=== PATIENT | female | born 1965 | race Caucasian/White ===

== ENCOUNTER 2019-11-03 17:24 | Inpatient (IN) | payer SELFPAY ==
[~2019-11-03] VITALS: Ht 167.6 cm; Wt 93.3 kg
--- NOTE | 2019-11-03 18:24 | PHYS DOC ---
Past Medical History Past Medical History: Hypertension Additional Past Medical Histor: Pt has not taken BP medication in a few days Past Surgical History: Hysterectomy Alcohol Use: None Drug Use: None General Adult EDM: Chief Complaint: ABDOMINAL PAIN HPI: HPI: Patient is a 54 year old female who presents with a 5-day history of worsening abdominal pain. Patient describes moderate in severity worse with palpation diffuse abdominal pain is worse in epigastric and radiates to the back. Patient has had some nausea but no vomiting. Patient has had bright red blood in her stool for last 3 years that continues. Patient seen by her doctor and sent in for evaluation. Patient has felt like she has had the sweats the last 3 nights but has not documented a temperature. Patient denies any chills or cough or urinary symptoms. Review of Systems: Review of Systems: Constitutional: Denies fever or chills. [] Eyes: Denies change in visual acuity. [] HENT: Denies nasal congestion or sore throat. [] Respiratory: Denies cough or shortness of breath. [] Cardiovascular: Denies chest pain or edema. [] GI: Complains abdominal pain with nausea and blood in her stools : Denies dysuria. [] Musculoskeletal: Planes of low back pain Integument: Denies rash. [] Neurologic: Denies headache, focal weakness or sensory changes. [] Endocrine: Denies polyuria or polydipsia. [] Lymphatic: Denies swollen glands. [] Psychiatric: Denies depression or anxiety. [] Heart Score: Risk Factors: Risk Factors: DM, Current or recent (<one month) smoker, HTN, HLP, family history of CAD, obesity. Risk Scores: Score 0 - 3: 2.5% MACE over next 6 weeks - Discharge Home Score 4 - 6: 20.3% MACE over next 6 weeks - Admit for Clinical Observation Score 7 - 10: 72.7% MACE over next 6 weeks - Early Invasive Strategies Allergies: Allergies: Allergies Coded Allergies Type Severity Reaction Last Updated Verified No Known Drug Allergies 06/03/17 No Physical Exam: PE: Constitutional: Well developed, well nourished, no acute distress, non-toxic appearance. [] HENT: Normocephalic, atraumatic, bilateral external ears normal, no trismus nose normal. [] Eyes: PERRLA, EOMI, conjunctiva normal, no discharge. [] Neck: Normal range of motion, no tenderness, supple, no stridor. [] Cardiovascular:Heart rate regular rhythm, peripheral pulses intact, cap refill brisk Lungs & Thorax: Bilateral breath sounds clear, no respiratory distress Abdomen:, soft, diffuse tenderness with worsened epigastric with no guarding or rebound, no masses, no pulsatile masses. [] Rectal exam: Airline Radio Operator present no external abnormalities Skin: Warm, dry, no erythema, no rash. [] Back: No tenderness, no CVA tenderness. [] Extremities: No tenderness, no cyanosis, no clubbing, ROM intact, no edema. [] Neurologic: Alert and oriented X 3, normal motor function, normal sensory function, no focal deficits noted. [] Psychologic: Affect normal, judgement normal, mood normal. [] Current Patient Data: Labs: Laboratory Tests Test 11/03/19 18:14 11/03/19 19:45 Urine Collection Type Void Urine Color Nicolette Urine Clarity Cloudy Urine pH 6.0 Urine Specific [place] >=1.030 Urine Protein 30 mg/dL Urine Glucose (UA) Negative mg/dL Urine Ketones (Stick) Trace mg/dL Urine Blood Negative Urine Nitrite Negative Urine Bilirubin Moderate Urine Urobilinogen Dipstick 2.0 mg/dL Urine Leukocyte Esterase Small Urine RBC 0 /HPF Urine WBC Occ /HPF Urine Squamous Epithelial Cells Mod /LPF Urine Bacteria Few /HPF Urine Hyaline Casts Occasional /HPF Urine Mucus Mod /LPF White Blood Count 7.8 x10^3/uL Red Blood Count 4.67 x10^6/uL Hemoglobin 12.4 g/dL Hematocrit 38.6 % Mean Corpuscular Volume 83 fL Mean Corpuscular Hemoglobin 27 pg Mean Corpuscular Hemoglobin Concent 32 g/dL Red Cell Distribution Width 16.2 % Platelet Count 327 x10^3/uL Neutrophils (%) (Auto) 60 % Lymphocytes (%) (Auto) 30 % Monocytes (%) (Auto) 9 % Eosinophils (%) (Auto) 1 % Basophils (%) (Auto) 1 % Neutrophils # (Auto) 4.7 x10^3/uL Lymphocytes # (Auto) 2.3 x10^3/uL Monocytes # (Auto) 0.7 x10^3/uL Eosinophils # (Auto) 0.1 x10^3/uL Basophils # (Auto) 0.0 x10^3/uL Sodium Level 135 mmol/L Potassium Level 3.5 mmol/L Chloride Level 97 mmol/L Carbon Dioxide Level 29 mmol/L Anion Gap 9 Blood Urea Nitrogen 12 mg/dL Creatinine 1.0 mg/dL Estimated GFR (Cockcroft-Gault) 58.0 BUN/Creatinine Ratio 12 Glucose Level 124 mg/dL Calcium Level 9.1 mg/dL Total Bilirubin 0.3 mg/dL Aspartate Amino Transf (AST/SGOT) 17 U/L Alanine Aminotransferase (ALT/SGPT) 21 U/L Alkaline Phosphatase 147 U/L Total Protein 6.4 g/dL Albumin 2.5 g/dL Albumin/Globulin Ratio 0.6 Lipase 75 U/L Current Medications Medications (Trade) Dose Ordered Sig/Oracio Route PRN Reason Start Time Stop Time Status Last Admin Dose Admin Morphine Sulfate (Morphine Sulfate) 4 mg PRN Q15MIN PRN IV/SQ PAIN GREATER THAN 3/10 11/03/19 18:30 11/04/19 18:29 Sodium Chloride 1,000 ml @ 1,000 mls/hr Q1H IV 11/03/19 18:29 11/03/19 19:28 DC 11/03/19 20:00 Ondansetron HCl (Zofran) 4 mg 1X ONCE IVP 11/03/19 18:30 11/03/19 18:31 DC Iohexol (Omnipaque 300 Mg/ml) 60 ml 1X ONCE IV 11/03/19 21:00 11/03/19 21:01 DC 11/03/19 21:12 Info (CONTRAST GIVEN -- Rx MONITORING) 1 each PRN DAILY PRN MC SEE COMMENTS 11/03/19 20:45 11/05/19 20:44 Piperacillin Sod/ Tazobactam Sod 3.375 gm/Sodium Chloride 50 ml @ 100 mls/hr 1X ONCE IV 11/03/19 23:00 11/03/19 23:29 Vital Signs: Vital Signs Date Time Temp Pulse Resp B/P (MAP) Pulse Ox O2 Delivery O2 Flow Rate FiO2 11/03/19 18:04 98.1 112 20 114/74 (87) 95 Room Air 98.1 EKG: EKG: [] Radiology/Procedures: Radiology/Procedures: [][facility] [address] [place], [place] [id number] IMAGING REPORT Signed PATIENT: ALEXX FERNANDO ACCOUNT: [id number] : 1965 LOCATION: ER AGE: 54 SEX: F EXAM STATUS: REG ER ORD. PHYSICIAN: EMMETT WITT MD REASON: abd pain PROCEDURE: CT ABD PELV W/ IV CONTRST ONLY CT ABD PELV W/ IV CONTRST ONLY History: Reason: abd pain / Spl. Instructions: [id number] 60ML / History: Technique: After the administration of intravenous contrast, CT imaging was performed of the abdomen and pelvis. Multiplanar images are reviewed. Exposure: One or more of the following individualized dose reduction techniques were utilized for this examination: 1. Automated exposure control 2. Adjustment of the mA and/or kV according to patient size 3. Use of iterative reconstruction technique. Comparison: None Findings: Lower chest: Right lower lobe linear atelectasis. Abdomen and pelvis: The liver, spleen, adrenal glands, and pancreas are unremarkable. Prior cholecystectomy. No biliary ductal dilatation. Unremarkable appearance the kidneys. No hydronephrosis. Decompressed urinary bladder. Rectal wall thickening with adjacent multiloculated peripherally enhancing fluid collection measures 3.6 transverse by 2.5 cm anterior posterior (series 2 image 82). There is severe adjacent inflammatory changes. Mass effect on the rectum with displacement of the right. Normal appendix. No evidence of bowel obstruction. Numerous mildly prominent or pelvic perirectal lymph nodes. Small pelvic ascites. Atheromatous plaque throughout the nonaneurysmal abdominal aorta and branch vessels. Prior hysterectomy. Bones: No pathologic osseous lesions. Impression: 1. Rectal wall thickening with perirectal abscess and severe inflammatory changes. Recommend follow-up after treatment to exclude underlying lesion. 2. Mild pelvic lymphadenopathy. Recommend attention on follow-up. Electronically signed by: Erlin Cruz DO (11/03/2019 10:32 PM) [facility] DICTATED and SIGNED BY: ERLIN CRUZ DO DATE: 11/03/192231 Impression: [facility] [address] [place] [address] IMAGING REPORT Signed PATIENT: ALEXX FERNANDO ACCOUNT: [id number] : 1965 LOCATION: ER AGE: 54 SEX: F EXAM STATUS: REG ER ORD. PHYSICIAN: EMMETT WITT MD REASON: abd pain PROCEDURE: CT ABD PELV W/ IV CONTRST ONLY CT ABD PELV W/ IV CONTRST ONLY History: Reason: abd pain / Spl. Instructions: [id number] 60ML / History: Technique: After the administration of intravenous contrast, CT imaging was performed of the abdomen and pelvis. Multiplanar images are reviewed. Exposure: One or more of the following individualized dose reduction techniques were utilized for this examination: 1. Automated exposure control 2. Adjustment of the mA and/or kV according to patient size 3. Use of iterative reconstruction technique. Comparison: None Findings: Lower chest: Right lower lobe linear atelectasis. Abdomen and pelvis: The liver, spleen, adrenal glands, and pancreas are unremarkable. Prior cholecystectomy. No biliary ductal dilatation. Unremarkable appearance the kidneys. No hydronephrosis. Decompressed urinary bladder. Rectal wall thickening with adjacent multiloculated peripherally enhancing fluid collection measures 3.6 transverse by 2.5 cm anterior posterior (series 2 image 82). There is severe adjacent inflammatory changes. Mass effect on the rectum with displacement of the right. Normal appendix. No evidence of bowel obstruction. Numerous mildly prominent or pelvic perirectal lymph nodes. Small pelvic ascites. Atheromatous plaque throughout the nonaneurysmal abdominal aorta and branch vessels. Prior hysterectomy. Bones: No pathologic osseous lesions. Impression: 1. Rectal wall thickening with perirectal abscess and severe inflammatory changes. Recommend follow-up after treatment to exclude underlying lesion. 2. Mild pelvic lymphadenopathy. Recommend attention on follow-up. Electronically signed by: Erlin Cruz DO (11/03/2019 10:32 PM) [facility] DICTATED and SIGNED BY: ERLIN CRUZ DO DATE: 11/03/192231 Course & Med Decision Making: Course & Med Decision Making Pertinent Labs and Imaging studies reviewed. (See chart for details) [] 54-year-old female presents with abdominal pain. Patient also has had 5 years of rectal bleeding. CT shows a perirectal abscess and possible mass. Patient was given antibiotics will be admitted. Dr. Brownlee will be consulted from general surgery. Dr. Welch to admit. Khushi Disclaimer: Khushi Disclaimer: This electronic medical record was generated, in whole or in part, using a voice recognition dictation system. Departure Departure Impression: Primary Impression: Perirectal abscess Additional Impression: Abdominal pain Disposition: 09 ADMITTED INPATIENT Admitting Physician: FELI GOTTI) Condition: STABLE Referrals: LEWIS WIGGINS PA-C (PCP) Justicifation of Admission Dx: Justifications for Admission: Justification of Admission Dx: Yes (PERIRECTAL ABSCESS) EMMETT WITT MD Nov 03, 2019 18:24
[2019-11-03] MEDS ORDERED: IV NORMAL SALINE 1000ML BAG 1,000 ML IV SCH (18:29)
[2019-11-03] MEDS ORDERED: MORPHINE SULFATE 4 MG/ML VIAL. IV/SQ PRN (18:30)
[2019-11-03] MEDS ORDERED: ONDANSETRON PF 4 MG/2 ML VIAL. IVP ONE (18:30)
[2019-11-03 18:41] LABS: BILIRUBIN,URINE MODERATE (NEG); CLARITY,URINE CLOUDY; COLOR,URINE AMBER; NITRITE,URINE NEGATIVE (NEG); PROTEIN,URINE 30 mg/dL (NEG-TRACE)
[2019-11-03 18:47] LABS: BACTERIA,URINE FEW /HPF (0-FEW); RBC,URINE 0 /HPF (0-2); SQUAMOUS EPITHELIAL CELL,UR MOD /LPF; WBC,URINE OCC /HPF (0-4)
[2019-11-03 18:48] LABS: HYALINE CASTS, URINE OCCASIONAL /HPF
[2019-11-03 20:02] LABS: BASO % 1 % (0-3); EOS # 0.1 x10^3/uL (0.0-0.7); EOS % 1 % (0-3); HEMATOCRIT 38.6 % (36.0-47.0); HEMOGLOBIN 12.4 g/dL (12.0-15.5); LYMPH # 2.3 x10^3/uL (1.0-4.8); LYMPH % 30 % (24-48); MEAN CORPUSCULAR HEMOGLOBIN 27 pg (25-35); MEAN CORPUSCULAR HGB CONC 32 g/dL (31-37); MEAN CORPUSCULAR VOLUME 83 fL (79-100); MONO # 0.7 x10^3/uL (0.0-1.1); MONO % 9 % (0-9); NEUT # 4.7 x10^3/uL (1.8-7.7); NEUT % 60 % (31-73); PLATELET COUNT 327 x10^3/uL (140-400); RED BLOOD COUNT 4.67 x10^6/uL (3.50-5.40); RED CELL DISTRIBUTION WIDTH 16.2 % (11.5-14.5); WHITE BLOOD COUNT 7.8 x10^3/uL (4.0-11.0)
[2019-11-03 20:03] LABS: CALCIUM 9.1 mg/dL (8.5-10.1); POTASSIUM 3.5 mmol/L (3.5-5.1)
[2019-11-03 20:10] LABS: ALBUMIN 2.5 g/dL (3.4-5.0); ALBUMIN/GLOBULIN RATIO 0.6 (1.0-1.7); TOTAL BILIRUBIN 0.3 mg/dL (0.2-1.0); TOTAL PROTEIN 6.4 g/dL (6.4-8.2)
[2019-11-03] MEDS ORDERED: CONTRAST GIVEN. MC PRN (20:45)
[2019-11-03] MEDS ORDERED: IOHEXOL 300 MG/ML 100ML VIAL. IV ONE (21:00)
--- NOTE | 2019-11-03 22:35 | RAD ---
CT ABD PELV W/ IV CONTRST ONLY History: Reason: abd pain / Spl. Instructions: [id number] 60ML / History: Technique: After the administration of intravenous contrast, CT imaging was performed of the abdomen and pelvis. Multiplanar images are reviewed. Exposure: One or more of the following individualized dose reduction techniques were utilized for this examination: 1. Automated exposure control 2. Adjustment of the mA and/or kV according to patient size 3. Use of iterative reconstruction technique. Comparison: None Findings: Lower chest: Right lower lobe linear atelectasis. Abdomen and pelvis: The liver, spleen, adrenal glands, and pancreas are unremarkable. Prior cholecystectomy. No biliary ductal dilatation. Unremarkable appearance the kidneys. No hydronephrosis. Decompressed urinary bladder. Rectal wall thickening with adjacent multiloculated peripherally enhancing fluid collection measures 3.6 transverse by 2.5 cm anterior posterior (series 2 image 82). There is severe adjacent inflammatory changes. Mass effect on the rectum with displacement of the right. Normal appendix. No evidence of bowel obstruction. Numerous mildly prominent or pelvic perirectal lymph nodes. Small pelvic ascites. Atheromatous plaque throughout the nonaneurysmal abdominal aorta and branch vessels. Prior hysterectomy. Bones: No pathologic osseous lesions. Impression: 1. Rectal wall thickening with perirectal abscess and severe inflammatory changes. Recommend follow-up after treatment to exclude underlying lesion. 2. Mild pelvic lymphadenopathy. Recommend attention on follow-up. Electronically signed by: Erlin Cruz DO (11/03/2019 10:32 PM) [facility]
[2019-11-03] MEDS ORDERED: PIPERACILLIN/TAZOBACTAM 3.375 GM in IV NORMAL SALINE 50ML 50 ML IV ONE (23:00)
[2019-11-04] MEDS ORDERED: DEXTROSE 50% 25 GM / 50ML DISP.SYRIN. IV ONE (01:45)
[2019-11-04] MEDS ORDERED: metoprolol PO (05:35)
[2019-11-04] MEDS ORDERED: losartan-hctz PO (05:35)
[2019-11-04 07:00] VITALS: BP 129/76
--- NOTE | 2019-11-04 09:13 | HP ---
ADMIT DATE: 11/04/2019 CHIEF COMPLAINT: Abdominal pain. HISTORY OF PRESENT ILLNESS: The patient is a pleasant middle-aged female who has had 4 days of abdominal pain. She has associated bloating. It is rated at 9/10. It is worse with food, better with no food. She tried [id number] meds that did not work, she describes as irritating. I discussed the case with ER physician. We did a CAT scan, it does show a perirectal abscess and a possible mass, although I suspect this is all abscess. I am going to admit the patient and consult GI, Infectious Disease and Interventional Radiology to drain the abscess. PAST MEDICAL HISTORY: Hypertension, hysterectomy. ALLERGIES: None. FAMILY HISTORY: Diabetes. SOCIAL HISTORY: She does not drink, smoke or take drugs. She used to work in a hotel business, but currently unemployed. MEDICATIONS: Reviewed, please refer to the MRAD. REVIEW OF SYSTEMS: GENERAL: No history of weight change, weakness or fevers. SKIN: No bruising, hair changes or rashes. EYES: No blurred, double or loss of vision. NOSE AND THROAT: No history of nosebleeds, hoarseness or sore throat. HEART: No history of palpitations, chest pain or shortness of breath on exertion. LUNGS: Denies cough, hemoptysis, wheezing or shortness of breath. GASTROINTESTINAL: She complains of abdominal pain and bloating. GENITOURINARY: No history of frequency, urgency, hesitancy or nocturia. NEUROLOGIC: Denies history of numbness, tingling, tremor or weakness. PSYCHIATRIC: No history of panic, anxiety or depression. ENDOCRINE: No history of heat or cold intolerance, polyuria or polydipsia. EXTREMITIES: Denies muscle weakness, joint pain, pain on walking or stiffness. PHYSICAL EXAMINATION: VITALS: Within normal limits and are stable. GENERAL: No apparent distress. Alert and oriented. HEENT: Normal cephalic atraumatic, external auditory canals are patent. EYES: Extraocular muscles are intact, pupils are equally round and reactive to light and accommodation. MUSCULOSKELETAL: Well developed, well nourished, good range of motion. ENDOCRINE: No thyromegaly was palpated. LYMPHATICS: No cervical chain or axillary nodes were noted. HEMATOPOIETIC: No bruising. NECK: Supple, no JVD, no thyromegaly was noted. LUNGS: Clear to auscultation in all lung prince without rhonchi or wheezing. HEART: RRR, S1, S2 present. Peripheral pulses intact, no obvious murmurs were noted. ABDOMEN: Her abdomen is slightly tender with decreased bowel sounds. EXTREMITIES: Without any cyanosis, clubbing, or edema. Pedal pulses intact, Homans sign is negative. NEUROLOGIC: Normal speech, normal tone. A & O x3, moves all extremities, no obvious focal deficits. PSYCHIATRIC: Normal affect, normal mood. Stable. SKIN: No ulcerations or rashes, good skin turgor, no jaundice. VASCULAR: Good capillary refill, neurovascular bundle appears to be intact. LABORATORY DATA: White count 7.8. Electrolytes: Sodium 135, glucose 124. The rest are normal. Urinalysis: Small amount of leukocyte esterase. IMAGING: CT of the abdomen shows a perirectal abscess. ASSESSMENT AND PLAN: Perirectal abscess. The patient has been admitted. We are given IV antibiotics. Consult GI, Interventional Radiology and Infectious Disease. Home meds, DVT prophylaxis. Full code. JN ELDER DO DR: DB/sejal JOB#: [id number] / [id number]
--- NOTE | 2019-11-04 09:57 | NUR ---
SW following. Discussed with RN, pt from home, gets around fine, room air, cardiac diet, COVID-[address] Bourgeois, Dr. Salvador and Dr. Stoner. Perirectal abscess and possible mass. Med Assist following for self pay status. SW will continue to follow.
[2019-11-04] MEDS: NICOTINE 21MG PATCH. TD PRN (10:29)
--- NOTE | 2019-11-04 10:39 | PDOC ---
Infectious Disease Note Vital Sign Vital Signs Vital Signs Date Time Temp Pulse Resp B/P (MAP) Pulse Ox O2 Delivery O2 Flow Rate FiO2 11/04/19 07:00 97.8 107 18 129/76 (93) 94 Room Air 97.8 Labs Lab Laboratory Tests Test 11/03/19 18:14 11/03/19 19:45 11/04/19 00:51 11/04/19 02:49 Urine Collection Type Void Urine Color Nicolette Urine Clarity Cloudy Urine pH 6.0 (<5.0-8.0) Urine Specific [place] >=1.030 (1.000-1.030) Urine Protein 30 mg/dL (NEG-TRACE) Urine Glucose (UA) Negative mg/dL (NEG) Urine Ketones (Stick) Trace mg/dL (NEG) Urine Blood Negative (NEG) Urine Nitrite Negative (NEG) Urine Bilirubin Moderate (NEG) Urine Urobilinogen Dipstick 2.0 mg/dL (0.2 mg/dL) Urine Leukocyte Esterase Small (NEG) Urine RBC 0 /HPF (0-2) Urine WBC Occ /HPF (0-4) Urine Squamous Epithelial Cells Mod /LPF Urine Bacteria Few /HPF (0-FEW) Urine Hyaline Casts Occasional /HPF Urine Mucus Mod /LPF White Blood Count 7.8 x10^3/uL (4.0-11.0) Red Blood Count 4.67 x10^6/uL (3.50-5.40) Hemoglobin 12.4 g/dL (12.0-15.5) Hematocrit 38.6 % (36.0-47.0) Mean Corpuscular Volume 83 fL (79-100) Mean Corpuscular Hemoglobin 27 pg (25-35) Mean Corpuscular Hemoglobin Concent 32 g/dL (31-37) Red Cell Distribution Width 16.2 % (11.5-14.5) Platelet Count 327 x10^3/uL (140-400) Neutrophils (%) (Auto) 60 % (31-73) Lymphocytes (%) (Auto) 30 % (24-48) Monocytes (%) (Auto) 9 % (0-9) Eosinophils (%) (Auto) 1 % (0-3) Basophils (%) (Auto) 1 % (0-3) Neutrophils # (Auto) 4.7 x10^3/uL (1.8-7.7) Lymphocytes # (Auto) 2.3 x10^3/uL (1.0-4.8) Monocytes # (Auto) 0.7 x10^3/uL (0.0-1.1) Eosinophils # (Auto) 0.1 x10^3/uL (0.0-0.7) Basophils # (Auto) 0.0 x10^3/uL (0.0-0.2) Sodium Level 135 mmol/L (136-145) Potassium Level 3.5 mmol/L (3.5-5.1) Chloride Level 97 mmol/L (98-107) Carbon Dioxide Level 29 mmol/L (21-32) Anion Gap 9 (6-14) Blood Urea Nitrogen 12 mg/dL (7-20) Creatinine 1.0 mg/dL (0.6-1.0) Estimated GFR (Cockcroft-Gault) 58.0 BUN/Creatinine Ratio 12 (6-20) Glucose Level 124 mg/dL (70-99) Calcium Level 9.1 mg/dL (8.5-10.1) Total Bilirubin 0.3 mg/dL (0.2-1.0) Aspartate Amino Transf (AST/SGOT) 17 U/L (15-37) Alanine Aminotransferase (ALT/SGPT) 21 U/L (14-59) Alkaline Phosphatase 147 U/L (46-116) Total Protein 6.4 g/dL (6.4-8.2) Albumin 2.5 g/dL (3.4-5.0) Albumin/Globulin Ratio 0.6 (1.0-1.7) Lipase 75 U/L (73-393) Lactic Acid Level 1.2 mmol/L (0.4-2.0) SARS-CoV-2 Antigen (Rapid) Negative (NEGATIVE) Objective Assessment pt seen, consult dictated Plan Plan of Care / KAYLA MORALES MD Nov 04, 2019 10:39
[2019-11-04 10:43] VITALS: BP 123/81
--- NOTE | 2019-11-04 12:00 | CONS ---
DATE OF CONSULTATION: 11/04/2019 REQUESTING PHYSICIAN: Dr. Palafox. REASON FOR CONSULTATION: Perirectal abscess. HISTORY OF PRESENT ILLNESS: This is a 54-year-old female who has been intermittent having abdominal pain last 5 days. It gotten worse in the epigastric region, hence she decided to come in. The patient also has intermittent rectal bleed and she was told to have colonoscopy, but she has never done it. The patient denies any nausea or vomiting. Denies any diarrhea. Denies any chest pain. Denies any weight loss. PAST MEDICAL HISTORY: Positive for hypertension and has had hysterectomy. The patient does know that there is something wrong with her rectal area, but she has never gotten to be taken care of. SOCIAL HISTORY: Positive for smoking, no alcohol use or drug use. ALLERGIES: No known drug allergies. CURRENT MEDICATIONS: Reviewed. The patient is on piperacillin/tazobactam. REVIEW OF SYSTEMS: As per HPI, all other systems reviewed are negative. PHYSICAL EXAMINATION: GENERAL: Alert, oriented female, not in distress. VITAL SIGNS: Stable, afebrile. HEENT: NAD. NECK: Supple, no JVP, no lymphadenopathy. LUNGS: Clear. HEART: S1, S2 regular. ABDOMEN: Soft, mild epigastric tenderness, no rebound, guarding. No organomegaly. EXTREMITIES: No edema, cyanosis. SKIN: Unremarkable. RECTAL: Perirectal area examination done with the patient's nurse and there is no redness, induration, open wound or any tenderness felt. NEUROLOGICAL: The patient is alert, awake and appropriate. No focal neurologic deficit. LABORATORY DATA: White count is normal. BUN and creatinine is normal. Urinalysis unremarkable. COVID-[address] showed there is a rectal wall thickening with perirectal abscess and severe inflammatory changes. IMPRESSION: 1. Abdominal pain may have peptic ulcer disease. 2. Rectal bleed, may have been from peptic ulcer disease and/or she does have some changes in the rectal wall that may be causing the bleed. 3. Rectal wall thickening and perirectal abscess with severe inflammation concerning for malignancy. RECOMMENDATIONS: Continue Zosyn for the time being. Infection is probably not that much of a component, but the patient needs EGD and colonoscopy. Thank you very much, Dr. Palafox, for giving me the opportunity to participate in this patient's care. KAYLA MORALES MD DR: TIEN/sejal JOB#: [id number] / [id number]
[2019-11-04 12:04] LABS: PROTHROMBIN TIME PATIENT 13.2 SEC (11.7-14.0)
[2019-11-04] MEDS ORDERED: LIDOCAINE WITH 8.4% SOD BICARB 3 ML DISP.SYRIN. ONE (13:26)
--- NOTE | 2019-11-04 13:40 | PDOC ---
G I PROGRESS NOTE Reason for Follow-up Rectal bleed Subjective Bleeding with and without BMS Physical Exam Lungs clear CV S1 S2 ABD +BS, soft, nontender Review of Relevant I have reviewed the following items mo (where applicable) has been applied. Labs Laboratory Tests Test 11/03/19 18:14 11/03/19 19:45 11/04/19 00:51 11/04/19 02:49 Urine Collection Type Void Urine Color Nicolette Urine Clarity Cloudy Urine pH 6.0 (<5.0-8.0) Urine Specific [place] >=1.030 (1.000-1.030) Urine Protein 30 mg/dL (NEG-TRACE) Urine Glucose (UA) Negative mg/dL (NEG) Urine Ketones (Stick) Trace mg/dL (NEG) Urine Blood Negative (NEG) Urine Nitrite Negative (NEG) Urine Bilirubin Moderate (NEG) Urine Urobilinogen Dipstick 2.0 mg/dL (0.2 mg/dL) Urine Leukocyte Esterase Small (NEG) Urine RBC 0 /HPF (0-2) Urine WBC Occ /HPF (0-4) Urine Squamous Epithelial Cells Mod /LPF Urine Bacteria Few /HPF (0-FEW) Urine Hyaline Casts Occasional /HPF Urine Mucus Mod /LPF White Blood Count 7.8 x10^3/uL (4.0-11.0) Red Blood Count 4.67 x10^6/uL (3.50-5.40) Hemoglobin 12.4 g/dL (12.0-15.5) Hematocrit 38.6 % (36.0-47.0) Mean Corpuscular Volume 83 fL (79-100) Mean Corpuscular Hemoglobin 27 pg (25-35) Mean Corpuscular Hemoglobin Concent 32 g/dL (31-37) Red Cell Distribution Width 16.2 % (11.5-14.5) Platelet Count 327 x10^3/uL (140-400) Neutrophils (%) (Auto) 60 % (31-73) Lymphocytes (%) (Auto) 30 % (24-48) Monocytes (%) (Auto) 9 % (0-9) Eosinophils (%) (Auto) 1 % (0-3) Basophils (%) (Auto) 1 % (0-3) Neutrophils # (Auto) 4.7 x10^3/uL (1.8-7.7) Lymphocytes # (Auto) 2.3 x10^3/uL (1.0-4.8) Monocytes # (Auto) 0.7 x10^3/uL (0.0-1.1) Eosinophils # (Auto) 0.1 x10^3/uL (0.0-0.7) Basophils # (Auto) 0.0 x10^3/uL (0.0-0.2) Sodium Level 135 mmol/L (136-145) Potassium Level 3.5 mmol/L (3.5-5.1) Chloride Level 97 mmol/L (98-107) Carbon Dioxide Level 29 mmol/L (21-32) Anion Gap 9 (6-14) Blood Urea Nitrogen 12 mg/dL (7-20) Creatinine 1.0 mg/dL (0.6-1.0) Estimated GFR (Cockcroft-Gault) 58.0 BUN/Creatinine Ratio 12 (6-20) Glucose Level 124 mg/dL (70-99) Calcium Level 9.1 mg/dL (8.5-10.1) Total Bilirubin 0.3 mg/dL (0.2-1.0) Aspartate Amino Transf (AST/SGOT) 17 U/L (15-37) Alanine Aminotransferase (ALT/SGPT) 21 U/L (14-59) Alkaline Phosphatase 147 U/L (46-116) Total Protein 6.4 g/dL (6.4-8.2) Albumin 2.5 g/dL (3.4-5.0) Albumin/Globulin Ratio 0.6 (1.0-1.7) Lipase 75 U/L (73-393) Lactic Acid Level 1.2 mmol/L (0.4-2.0) SARS-CoV-2 Antigen (Rapid) Negative (NEGATIVE) Test 11/04/19 11:40 Prothrombin Time 13.2 SEC (11.7-14.0) Prothromb Time International Ratio 1.0 (0.8-1.1) Laboratory Tests Test 11/03/19 18:14 11/03/19 19:45 11/04/19 00:51 11/04/19 02:49 Urine Collection Type Void Urine Color Nicolette Urine Clarity Cloudy Urine pH 6.0 (<5.0-8.0) Urine Specific [place] >=1.030 (1.000-1.030) Urine Protein 30 mg/dL (NEG-TRACE) Urine Glucose (UA) Negative mg/dL (NEG) Urine Ketones (Stick) Trace mg/dL (NEG) Urine Blood Negative (NEG) Urine Nitrite Negative (NEG) Urine Bilirubin Moderate (NEG) Urine Urobilinogen Dipstick 2.0 mg/dL (0.2 mg/dL) Urine Leukocyte Esterase Small (NEG) Urine RBC 0 /HPF (0-2) Urine WBC Occ /HPF (0-4) Urine Squamous Epithelial Cells Mod /LPF Urine Bacteria Few /HPF (0-FEW) Urine Hyaline Casts Occasional /HPF Urine Mucus Mod /LPF White Blood Count 7.8 x10^3/uL (4.0-11.0) Red Blood Count 4.67 x10^6/uL (3.50-5.40) Hemoglobin 12.4 g/dL (12.0-15.5) Hematocrit 38.6 % (36.0-47.0) Mean Corpuscular Volume 83 fL (79-100) Mean Corpuscular Hemoglobin 27 pg (25-35) Mean Corpuscular Hemoglobin Concent 32 g/dL (31-37) Red Cell Distribution Width 16.2 % (11.5-14.5) Platelet Count 327 x10^3/uL (140-400) Neutrophils (%) (Auto) 60 % (31-73) Lymphocytes (%) (Auto) 30 % (24-48) Monocytes (%) (Auto) 9 % (0-9) Eosinophils (%) (Auto) 1 % (0-3) Basophils (%) (Auto) 1 % (0-3) Neutrophils # (Auto) 4.7 x10^3/uL (1.8-7.7) Lymphocytes # (Auto) 2.3 x10^3/uL (1.0-4.8) Monocytes # (Auto) 0.7 x10^3/uL (0.0-1.1) Eosinophils # (Auto) 0.1 x10^3/uL (0.0-0.7) Basophils # (Auto) 0.0 x10^3/uL (0.0-0.2) Sodium Level 135 mmol/L (136-145) Potassium Level 3.5 mmol/L (3.5-5.1) Chloride Level 97 mmol/L (98-107) Carbon Dioxide Level 29 mmol/L (21-32) Anion Gap 9 (6-14) Blood Urea Nitrogen 12 mg/dL (7-20) Creatinine 1.0 mg/dL (0.6-1.0) Estimated GFR (Cockcroft-Gault) 58.0 BUN/Creatinine Ratio 12 (6-20) Glucose Level 124 mg/dL (70-99) Calcium Level 9.1 mg/dL (8.5-10.1) Total Bilirubin 0.3 mg/dL (0.2-1.0) Aspartate Amino Transf (AST/SGOT) 17 U/L (15-37) Alanine Aminotransferase (ALT/SGPT) 21 U/L (14-59) Alkaline Phosphatase 147 U/L (46-116) Total Protein 6.4 g/dL (6.4-8.2) Albumin 2.5 g/dL (3.4-5.0) Albumin/Globulin Ratio 0.6 (1.0-1.7) Lipase 75 U/L (73-393) Lactic Acid Level 1.2 mmol/L (0.4-2.0) SARS-CoV-2 Antigen (Rapid) Negative (NEGATIVE) Test 11/04/19 11:40 Prothrombin Time 13.2 SEC (11.7-14.0) Prothromb Time International Ratio 1.0 (0.8-1.1) Medications Current Medications Morphine Sulfate (Morphine Sulfate) 4 mg PRN Q15MIN PRN IV/SQ PAIN GREATER THAN 3/10; Start 11/03/19 at 18:30; Stop 11/04/19 at 18:29 Sodium Chloride 1,000 ml @ 1,000 mls/hr Q1H IV Last administered on 11/03/19at 20:00; Start 11/03/19 at 18:29; Stop 11/03/19 at 19:28; Status DC Ondansetron HCl (Zofran) 4 mg 1X ONCE IVP ; Start 11/03/19 at 18:30; Stop 11/03/19 at 18:31; Status DC Iohexol (Omnipaque 300 Mg/ml) 60 ml 1X ONCE IV Last administered on 11/03/19at 21:12; Start 11/03/19 at 21:00; Stop 11/03/19 at 21:01; Status DC Info (CONTRAST GIVEN -- Rx MONITORING) 1 each PRN DAILY PRN MC SEE COMMENTS; Start 11/03/19 at 20:45; Stop 11/05/19 at 20:44 Piperacillin Sod/ Tazobactam Sod 3.375 gm/Sodium Chloride 50 ml @ 100 mls/hr 1X ONCE IV Last administered on 11/03/19at 23:00; Start 11/03/19 at 23:00; Stop 11/03/19 at 23:29; Status DC Dextrose (Dextrose 50%-Water Syringe) 25 gm 1X ONCE IV ; Start 11/04/19 at 01:45; Stop 11/04/19 at 01:46; Status Cancel Nicotine (Nicoderm Cq 21mg) 1 patch PRN DAILY PRN TD SMOKING CESSATION Last administered on 11/04/19at 10:29; Start 11/04/19 at 04:45 Lorazepam (Ativan Inj) 1 mg PRN Q4HRS PRN IVP ANXIETY / AGITATION Last administered on 11/04/19at 11:07; Start 11/04/19 at 10:45 Lidocaine HCl (Buffered Lidocaine 1%) 3 ml STK-MED ONCE .ROUTE ; Start 11/04/19 at 13:26; Stop 11/04/19 at 13:26; Status DC Active Scripts Active Reported [losartan-hctz] 100,/25 1 PO DAILY [metoprolol] 25 25 Mg PO DAILY Vitals/I & O Vital Sign - Last 24 Hours 11/03/19 11/03/19 11/03/19 11/03/19 17:24 18:04 19:42 19:56 Temp 98.1 98.1 98.1 98.1 Pulse 112 112 100 98 Resp 16 20 B/P (MAP) 114/74 (87) 114/74 (87) 117/54 (75) 115/80 (92) Pulse Ox 95 95 95 96 O2 Delivery Room Air Room Air Room Air 11/03/19 11/03/19 11/03/19 11/04/19 19:57 20:56 23:55 00:55 Temp 98.1 98.1 Pulse 98 94 93 Resp 16 18 B/P (MAP) 144/81 (102) 141/81 (101) 140/83 (102) Pulse Ox 100 96 95 O2 Delivery Room Air Room Air Room Air 911/04/19 11/04/19 11/04/19 01:25 01:55 02:30 04:51 Temp 98.1 98.1 98.1 98.1 98.1 98.1 Pulse 88 90 101 Resp 18 24 24 B/P (MAP) 132/75 (94) 136/81 (99) 144/81 (102) Pulse Ox 95 94 98 O2 Delivery Room Air Room Air Room Air Room Air 11/04/19 11/04/19 07:00 10:43 Temp 97.8 97.8 97.8 97.8 Pulse 107 102 Resp 18 18 B/P (MAP) 129/76 (93) 123/81 (95) Pulse Ox 94 95 O2 Delivery Room Air Room Air Intake and Output 11/03/19 11/03/19 11/04/19 15:00 23:00 07:00 Output Total 0 ml Balance 0 ml Problem List Problems Medical Problems: (1) Abdominal pain Status: Acute (2) Perirectal abscess Status: Acute Assessment Rectal bleed- colonoscopy has been recommended twice in the past two eyars and patient has declined, after prep , she is now willing to proceed in am. Crohns, malignancy, and/or zachary-recctal disease lead differential. Justicifation of Admission Dx: Justifications for Admission: Justification of Admission Dx: Yes (PERIRECTAL ABSCESS) EMMETT AVALOS MD Nov 04, 2019 13:39
[2019-11-04] MEDS ORDERED: POLYETHYLENE GLYCOL 3350 BTL 238 GM POWDER PO ONE (13:45)
[2019-11-04 15:00] VITALS: BP 126/74
[2019-11-04] MEDS: PIPERACILLIN/TAZOBACTAM 3.375 GM in IV NORMAL SALINE 50ML 50 ML IV SCH (17:30)
[2019-11-04 19:00] VITALS: BP 165/97
[2019-11-04 23:00] VITALS: BP 126/64
[2019-11-05] MEDS: PIPERACILLIN/TAZOBACTAM 3.375 GM in IV NORMAL SALINE 50ML 50 ML IV SCH ×2 (00:07→06:22)
[2019-11-05 03:00] VITALS: BP 151/93
--- NOTE | 2019-11-05 06:18 | NUR ---
Patient informs this resume writer that she has not had any results from the bowel prep, nor is passing flatus, Dr Stoner notified, will address when here. monitoring.
[2019-11-05 07:00] VITALS: BP 152/91
[2019-11-05] MEDS ORDERED: PROPOFOL 10 MG/ML (20ML) VIAL. IV ONE (08:52)
[2019-11-05] MEDS ORDERED: LIDOCAINE 2% PF 5 ML VIAL. ONE (08:52)
--- NOTE | 2019-11-05 09:52 | PDOC4 ---
Operative Note Operative Note Flexible sigmoidoscopy with biopsies Meds propofol per anesthesia Pre-op dx rectal bleed/abnl Ct scan Post-op dx rectal cancer distal rectum to recto-sigmoid junction s/p bx extent 30 cm due to prep Plan surgery/radiation/oncology consults for adjuvant therapy EMMETT AVALOS MD Nov 05, 2019 09:52
--- NOTE | 2019-11-05 09:52 | PDOC ---
Provider Note Date of Service: DATE: 11/05/19 TIME: 09:39 Provider Note IR note. Patient went for colonopscopy which showed a large mass in the rectum. Case discussed with Dr Stoner. Given CT and endoscopic findings, this is likely direct extension of the mass into the perirectal fat. No IR intervention indicated at current. Justifications for Admission Other Justification GUILLERMO CARMEN MD Nov 05, 2019 09:52
[2019-11-05] MEDS ORDERED: IV NORMAL SALINE 1000ML BAG 1,000 ML IV ONE (10:00)
[2019-11-05] MEDS ORDERED: IV RINGERS,LACTATED 1000ML 1,000 ML IV ONE (10:00)
--- NOTE | 2019-11-05 10:33 | PDOC ---
Infectious Disease Note Subjective Subjective pt is just back from colonoscopy, tumor was seen and biopsied ROS ROS no n/v/d/ Vital Sign Vital Signs Vital Signs Date Time Temp Pulse Resp B/P (MAP) Pulse Ox O2 Delivery O2 Flow Rate FiO2 11/05/19 09:58 89 20 122/69 93 Room Air 11/05/19 09:41 98.9 4 98.9 Physical Exam PHYSICAL EXAM GENERAL: Alert, oriented female, not in distress. VITAL SIGNS: Stable, afebrile. HEENT: NAD. NECK: Supple, no JVP, no lymphadenopathy. LUNGS: Clear. HEART: S1, S2 regular. ABDOMEN: Soft, mild epigastric tenderness, no rebound, guarding. No organomegaly. EXTREMITIES: No edema, cyanosis. SKIN: Unremarkable. RECTAL: Perirectal area examination done with the patient's nurse and there is no redness, induration, open wound or any tenderness felt. NEUROLOGICAL: The patient is alert, awake and appropriate. No focal neurologic deficit. Labs Lab Laboratory Tests Test 11/04/19 11:40 Prothrombin Time 13.2 SEC (11.7-14.0) Prothromb Time International Ratio 1.0 (0.8-1.1) Micro Microbiology 11/04/19 Blood Culture - Preliminary, Resulted NO GROWTH AFTER 1 DAY Objective Assessment IMPRESSION: 1. Abdominal pain may have peptic ulcer disease. 2. Rectal bleed, with rectal mass, suspected malignancy 3. Rectal wall thickening and perirectal abscess with severe inflammation concerning for malignancy. Plan Plan of Care d/c antibiotics will s/o, call if questions KAYLA MORALES MD Nov 05, 2019 10:33
--- NOTE | 2019-11-05 10:33 | NUR ---
SW following. Discussed with RN, pt from home, room air, cardiac diet. Pt having colonoscopy today and CT guided drainage of abscess. SW will continue to follow for any discharge planning needs.
[2019-11-05 11:00] VITALS: BP 154/94
--- NOTE | 2019-11-05 11:20 | PDOC2 ---
INOCENCIA SEN [employer]ARDOUS MATERIAL SPECIALIST 11/05/19 1120: CONSULT Date of Consult Date of Consult DATE: 11/05/19 TIME: 11:12 Reason for Consult Reason for Consult: rectal mass Referring Physician Referring Physician: Dr Stoner Identification/Chief Complaint Chief Complaint abdominal pain Source Source: Chart review, Patient History of Present Illness Reason for Visit: Abdominal pain, intermittent rectal bleeding for 3 years. Some nausea, no emesis Colonoscopy showed rectal mass, partially obstructing she is having some stool today currently no abdominal pain Past Medical History Cardiovascular: HTN Past Surgical History Past Surgical History: Cholecystectomy Family History Family History: Diabetes Social History No ALCOHOL: none Drugs: None Lives: with Family Current Problem List Problem List Problems Medical Problems: (1) Abdominal pain Status: Acute (2) Perirectal abscess Status: Acute Current Medications Current Medications Current Medications Morphine Sulfate (Morphine Sulfate) 4 mg PRN Q15MIN PRN IV/SQ PAIN GREATER THAN 3/10; Start 11/03/19 at 18:30; Stop 11/04/19 at 18:29; Status DC Sodium Chloride 1,000 ml @ 1,000 mls/hr Q1H IV Last administered on 11/03/19at 20:00; Start 11/03/19 at 18:29; Stop 11/03/19 at 19:28; Status DC Ondansetron HCl (Zofran) 4 mg 1X ONCE IVP ; Start 11/03/19 at 18:30; Stop 11/03/19 at 18:31; Status DC Iohexol (Omnipaque 300 Mg/ml) 60 ml 1X ONCE IV Last administered on 11/03/19at 21:12; Start 11/03/19 at 21:00; Stop 11/03/19 at 21:01; Status DC Info (CONTRAST GIVEN -- Rx MONITORING) 1 each PRN DAILY PRN MC SEE COMMENTS; Start 11/03/19 at 20:45; Stop 11/05/19 at 20:44 Piperacillin Sod/ Tazobactam Sod 3.375 gm/Sodium Chloride 50 ml @ 100 mls/hr 1X ONCE IV Last administered on 11/03/19at 23:00; Start 11/03/19 at 23:00; Stop 11/03/19 at 23:29; Status DC Dextrose (Dextrose 50%-Water Syringe) 25 gm 1X ONCE IV ; Start 11/04/19 at 01:45; Stop 11/04/19 at 01:46; Status Cancel Nicotine (Nicoderm Cq 21mg) 1 patch PRN DAILY PRN TD SMOKING CESSATION Last administered on 11/04/19at 10:29; Start 11/04/19 at 04:45 Lorazepam (Ativan Inj) 1 mg PRN Q4HRS PRN IVP ANXIETY / AGITATION Last administered on 11/04/19at 11:07; Start 11/04/19 at 10:45 Lidocaine HCl (Buffered Lidocaine 1%) 3 ml STK-MED ONCE .ROUTE ; Start 11/04/19 at 13:26; Stop 11/04/19 at 13:26; Status DC Polyethylene Glycol (miraLAX Powder BULK BOTTLE) 238 gm 1X ONCE PO Last administered on 11/04/19at 17:28; Start 11/04/19 at 13:45; Stop 11/04/19 at 13:46; Status DC Piperacillin Sod/ Tazobactam Sod 3.375 gm/Sodium Chloride 50 ml @ 100 mls/hr Q6HRS IV Last administered on 11/05/19at 06:22; Start 11/04/19 at 18:00; Stop 11/05/19 at 10:34; Status DC Propofol (Diprivan) 200 mg STK-MED ONCE IV ; Start 11/05/19 at 08:52; Stop 11/05/19 at 08:53; Status DC Lidocaine HCl (Lidocaine Pf 2% Vial) 5 ml STK-MED ONCE .ROUTE ; Start 11/05/19 at 08:52; Stop 11/05/19 at 08:53; Status DC Sodium Chloride 1,000 ml @ 100 mls/hr 1X ONCE IV ; Start 11/05/19 at 10:00; Stop 11/05/19 at 19:59; Status UNV Ringer's Solution 1,000 ml @ 75 mls/hr 1X ONCE IV Last administered on 11/05/19at 08:30; Start 11/05/19 at 10:00; Stop 11/05/19 at 23:19 Active Scripts Active Reported [losartan-hctz] 100,/25 1 PO DAILY [metoprolol] 25 25 Mg PO DAILY Allergies Allergies: Coded Allergies: No Known Drug Allergies (Unverified , 11/05/19) ROS General: No: Chills, Other (fevers ) PSYCHOLOGICAL ROS: No: Anxiety, Depression Eyes: No Blurry vision, No Double vision HEENT: No: Heacaches, Sore Throat Hematological and Lymphatic: YES: Bleeding Problems; No: Blood Clots Respiratory: No: Cough, Shortness of breath Cardiovascular: No Chest Pain, No Palpitations Gastrointestinal: Yes Other (see hpi) Genitourinary: No Dysuria, No Retention Musculoskeletal: No Joint Pain, No Muscle Pain Neurological: No Impaired Coord/balance, No Numbness/Tingling Skin: No Pruritus, No Rash Physical Exam General: Alert, Oriented X3, Cooperative HEENT: Atraumatic, PERRLA Lungs: Clear to auscultation, Normal air movement Heart: Regular rate, Normal S1, Normal S2 Abdomen: Soft, Other (distended, nontender ) Extremities: No clubbing, No cyanosis Skin: No rashes, No breakdown Neuro: Normal gait, Normal speech Psych/Mental Status: Mental status NL, Mood NL MUSCULOSKELETAL: No deformity, No swelling Vitals VITALS Vital Signs Date Time Temp Pulse Resp B/P (MAP) Pulse Ox O2 Delivery O2 Flow Rate FiO2 11/05/19 09:58 89 20 122/69 93 Room Air 11/05/19 09:41 98.9 4 98.9 Labs Labs Laboratory Tests Test 11/03/19 18:14 11/03/19 19:45 11/04/19 00:51 11/04/19 02:35 Urine Collection Type Void Urine Color Nicolette Urine Clarity Cloudy Urine pH 6.0 (<5.0-8.0) Urine Specific [place] >=1.030 (1.000-1.030) Urine Protein 30 mg/dL (NEG-TRACE) Urine Glucose (UA) Negative mg/dL (NEG) Urine Ketones (Stick) Trace mg/dL (NEG) Urine Blood Negative (NEG) Urine Nitrite Negative (NEG) Urine Bilirubin Moderate (NEG) Urine Urobilinogen Dipstick 2.0 mg/dL (0.2 mg/dL) Urine Leukocyte Esterase Small (NEG) Urine RBC 0 /HPF (0-2) Urine WBC Occ /HPF (0-4) Urine Squamous Epithelial Cells Mod /LPF Urine Bacteria Few /HPF (0-FEW) Urine Hyaline Casts Occasional /HPF Urine Mucus Mod /LPF White Blood Count 7.8 x10^3/uL (4.0-11.0) Red Blood Count 4.67 x10^6/uL (3.50-5.40) Hemoglobin 12.4 g/dL (12.0-15.5) Hematocrit 38.6 % (36.0-47.0) Mean Corpuscular Volume 83 fL (79-100) Mean Corpuscular Hemoglobin 27 pg (25-35) Mean Corpuscular Hemoglobin Concent 32 g/dL (31-37) Red Cell Distribution Width 16.2 % (11.5-14.5) Platelet Count 327 x10^3/uL (140-400) Neutrophils (%) (Auto) 60 % (31-73) Lymphocytes (%) (Auto) 30 % (24-48) Monocytes (%) (Auto) 9 % (0-9) Eosinophils (%) (Auto) 1 % (0-3) Basophils (%) (Auto) 1 % (0-3) Neutrophils # (Auto) 4.7 x10^3/uL (1.8-7.7) Lymphocytes # (Auto) 2.3 x10^3/uL (1.0-4.8) Monocytes # (Auto) 0.7 x10^3/uL (0.0-1.1) Eosinophils # (Auto) 0.1 x10^3/uL (0.0-0.7) Basophils # (Auto) 0.0 x10^3/uL (0.0-0.2) Sodium Level 135 mmol/L (136-145) Potassium Level 3.5 mmol/L (3.5-5.1) Chloride Level 97 mmol/L (98-107) Carbon Dioxide Level 29 mmol/L (21-32) Anion Gap 9 (6-14) Blood Urea Nitrogen 12 mg/dL (7-20) Creatinine 1.0 mg/dL (0.6-1.0) Estimated GFR (Cockcroft-Gault) 58.0 BUN/Creatinine Ratio 12 (6-20) Glucose Level 124 mg/dL (70-99) Calcium Level 9.1 mg/dL (8.5-10.1) Total Bilirubin 0.3 mg/dL (0.2-1.0) Aspartate Amino Transf (AST/SGOT) 17 U/L (15-37) Alanine Aminotransferase (ALT/SGPT) 21 U/L (14-59) Alkaline Phosphatase 147 U/L (46-116) Total Protein 6.4 g/dL (6.4-8.2) Albumin 2.5 g/dL (3.4-5.0) Albumin/Globulin Ratio 0.6 (1.0-1.7) Lipase 75 U/L (73-393) Lactic Acid Level 1.2 mmol/L (0.4-2.0) Coronavirus (PCR) Not detected (Not Detected) Test 11/04/19 02:49 11/04/19 11:40 SARS-CoV-2 Antigen (Rapid) Negative (NEGATIVE) Prothrombin Time 13.2 SEC (11.7-14.0) Prothromb Time International Ratio 1.0 (0.8-1.1) Laboratory Tests Test 11/04/19 11:40 Prothrombin Time 13.2 SEC (11.7-14.0) Prothromb Time International Ratio 1.0 (0.8-1.1) Assessment/Plan Assessment/Plan rectal mass bx taken will review with DIMAS Lagunas MD 11/05/19 1532: CONSULT Assessment/Plan Assessment/Plan Patient seen and examined by me. Reviewed CT scan results as well as colonoscopy results. Patient scheduled for MRI today from surgical standpoint she could be discharged and follow-up as outpatient will likely need preop chemoradiation prior to surgery INOCENCIA SEN APRN Nov 05, 2019 11:20 DIMAS NASSAR MD Nov 05, 2019 15:32
[2019-11-05] MEDS: NICOTINE 21MG PATCH. TD PRN (12:39)
[2019-11-05] MEDS ORDERED: IOHEXOL 300 MG/ML 100ML VIAL. IV ONE (14:00)
[2019-11-05] MEDS ORDERED: CONTRAST GIVEN. MC PRN (14:00)
[2019-11-05 15:00] VITALS: BP 143/81
--- NOTE | 2019-11-05 16:15 | RAD ---
CT CHEST W/CONTRAST History: Rectal cancer staging Technique: Postcontrast CT imaging was performed of the chest, multiplanar reconstruction images submitted. One or more of the following individualized dose reduction techniques were utilized for this examination: 1. Automated exposure control 2. Adjustment of the mA and/or kV according to patient size 3. Use of iterative reconstruction technique. Comparison: Abdomen pelvis CT exam November 03, 2019, no previous chest CT available Findings: There is some motion. There is no pleural pericardial fluid, pneumothorax, or infiltrate. There is coronary calcification. Thoracic aortic caliber is within normal limits, no dissection flap. No significantly enlarged nodes are identified of the chest. Linear peripheral density of the right lower lobe near the base is more likely atelectasis or fibrotic change, also present on the recent abdomen CT exam. There is a small subpleural right lower lobe nodule about 4 mm image 35 series 2. No bony destructive lesion is identified. IMPRESSION: 1. There is tiny 4 mm right lower lobe subpleural nodule, no other suspicious pulmonary nodularity or chest lymphadenopathy. Electronically signed by: Michael Felipe MD (11/05/2019 4:12 PM) [id number]
--- NOTE | 2019-11-05 16:58 | PDOC ---
[employer] PROGRESS NOTE Date of Service DOS: DATE: 11/05/19 TIME: 16:54 Chief Complaint Chief Complaint Rectal abscess History of Present Illness History of Present Illness Patient with rectal abscess and concern for malignancy. She is to have flexible sigmoidoscopy with biopsies. She will likely discharge after with outpatient follow-up. Vitals/I&O Vitals/I&O: Vital Signs Date Time Temp Pulse Resp B/P (MAP) Pulse Ox O2 Delivery O2 Flow Rate FiO2 11/05/19 15:00 98.0 95 18 143/81 (101) 99 Room Air 98.0 11/05/19 09:41 4 I & O 11/04/19 11/04/19 11/05/19 15:00 23:00 07:00 Intake Total 600 ml 300 ml 50 ml Output Total 0 ml 0 ml Balance 600 ml 300 ml 50 ml Physical Exam Physical Exam: GENERAL: Alert, oriented female, not in distress. VITAL SIGNS: Stable, afebrile. HEENT: NAD. NECK: Supple, no JVP, no lymphadenopathy. LUNGS: Clear. HEART: S1, S2 regular. ABDOMEN: Soft, mild epigastric tenderness, no rebound, guarding. No organomegaly. EXTREMITIES: No edema, cyanosis. SKIN: Unremarkable. RECTAL: Perirectal area examination done with the patient's nurse and there is no redness, induration, open wound or any tenderness felt. NEUROLOGICAL: The patient is alert, awake and appropriate. No focal neurologic deficit. General: Alert, Oriented X3, Cooperative Heart: Regular rate, Normal S1, Normal S2 Abdomen: Soft, Other (distended, nontender ) Extremities: No clubbing, No cyanosis Skin: No rashes, No breakdown Review of Systems Review of Systems: Currently denies any taina pain. Denies fever, denies nausea, denies vomiting, denies shortness of breath Assessment and Plan Assessmemt and Plan Problems Medical Problems: (1) Abdominal pain Status: Acute (2) Perirectal abscess Status: Acute Plan: flexible sigmoidoscopy with biopsies. Outpatient follow-up. Comment Review of Relevant I have reviewed the following items mo (where applicable) has been applied. Medications: Current Medications Medications (Trade) Dose Ordered Sig/Oracio Route PRN Reason Start Time Stop Time Status Last Admin Dose Admin Piperacillin Sod/ Tazobactam Sod 3.375 gm/Sodium Chloride 50 ml @ 100 mls/hr Q6HRS IV 11/04/19 18:00 11/05/19 10:34 DC 11/05/19 06:22 Ringer's Solution 1,000 ml @ 75 mls/hr 1X ONCE IV 11/05/19 10:00 11/05/19 23:19 11/05/19 08:30 Iohexol (Omnipaque 300 Mg/ml) 60 ml 1X ONCE IV 11/05/19 14:00 11/05/19 14:01 DC 11/05/19 14:25 Justifications for Admission Other Justification MARTY LUCERO MD Nov 05, 2019 16:57
--- NOTE | 2019-11-05 17:02 | PDOC3 ---
Discharge Summary Visit Information Date of Admission: Nov 03, 2019 Date of Discharge: Nov 05, 2019 Final Diagnosis Problems Medical Problems: (1) Abdominal pain Status: Acute (2) Perirectal abscess Status: Acute Brief Hospital Course Allergies Allergies Coded Allergies Type Severity Reaction Last Updated Verified No Known Drug Allergies 11/05/19 No Vital Signs Vital Signs Date Time Temp Pulse Resp B/P (MAP) Pulse Ox O2 Delivery O2 Flow Rate FiO2 11/05/19 15:00 98.0 95 18 143/81 (101) 99 Room Air 98.0 11/05/19 09:41 4 Lab Results Laboratory Tests Test 11/03/19 18:14 11/03/19 19:45 11/04/19 00:51 11/04/19 02:35 Urine Collection Type Void Urine Color Nicolette Urine Clarity Cloudy Urine pH 6.0 (<5.0-8.0) Urine Specific [place] >=1.030 (1.000-1.030) Urine Protein 30 mg/dL (NEG-TRACE) Urine Glucose (UA) Negative mg/dL (NEG) Urine Ketones (Stick) Trace mg/dL (NEG) Urine Blood Negative (NEG) Urine Nitrite Negative (NEG) Urine Bilirubin Moderate (NEG) Urine Urobilinogen Dipstick 2.0 mg/dL (0.2 mg/dL) Urine Leukocyte Esterase Small (NEG) Urine RBC 0 /HPF (0-2) Urine WBC Occ /HPF (0-4) Urine Squamous Epithelial Cells Mod /LPF Urine Bacteria Few /HPF (0-FEW) Urine Hyaline Casts Occasional /HPF Urine Mucus Mod /LPF White Blood Count 7.8 x10^3/uL (4.0-11.0) Red Blood Count 4.67 x10^6/uL (3.50-5.40) Hemoglobin 12.4 g/dL (12.0-15.5) Hematocrit 38.6 % (36.0-47.0) Mean Corpuscular Volume 83 fL (79-100) Mean Corpuscular Hemoglobin 27 pg (25-35) Mean Corpuscular Hemoglobin Concent 32 g/dL (31-37) Red Cell Distribution Width 16.2 % (11.5-14.5) Platelet Count 327 x10^3/uL (140-400) Neutrophils (%) (Auto) 60 % (31-73) Lymphocytes (%) (Auto) 30 % (24-48) Monocytes (%) (Auto) 9 % (0-9) Eosinophils (%) (Auto) 1 % (0-3) Basophils (%) (Auto) 1 % (0-3) Neutrophils # (Auto) 4.7 x10^3/uL (1.8-7.7) Lymphocytes # (Auto) 2.3 x10^3/uL (1.0-4.8) Monocytes # (Auto) 0.7 x10^3/uL (0.0-1.1) Eosinophils # (Auto) 0.1 x10^3/uL (0.0-0.7) Basophils # (Auto) 0.0 x10^3/uL (0.0-0.2) Sodium Level 135 mmol/L (136-145) Potassium Level 3.5 mmol/L (3.5-5.1) Chloride Level 97 mmol/L (98-107) Carbon Dioxide Level 29 mmol/L (21-32) Anion Gap 9 (6-14) Blood Urea Nitrogen 12 mg/dL (7-20) Creatinine 1.0 mg/dL (0.6-1.0) Estimated GFR (Cockcroft-Gault) 58.0 BUN/Creatinine Ratio 12 (6-20) Glucose Level 124 mg/dL (70-99) Calcium Level 9.1 mg/dL (8.5-10.1) Total Bilirubin 0.3 mg/dL (0.2-1.0) Aspartate Amino Transf (AST/SGOT) 17 U/L (15-37) Alanine Aminotransferase (ALT/SGPT) 21 U/L (14-59) Alkaline Phosphatase 147 U/L (46-116) Total Protein 6.4 g/dL (6.4-8.2) Albumin 2.5 g/dL (3.4-5.0) Albumin/Globulin Ratio 0.6 (1.0-1.7) Lipase 75 U/L (73-393) Lactic Acid Level 1.2 mmol/L (0.4-2.0) Coronavirus (PCR) Not detected (Not Detected) Test 11/04/19 02:49 11/04/19 11:40 SARS-CoV-2 Antigen (Rapid) Negative (NEGATIVE) Prothrombin Time 13.2 SEC (11.7-14.0) Prothromb Time International Ratio 1.0 (0.8-1.1) Brief Hospital Course Ms. Kaufman is a 54 old female who presented with rectal abscess concerning for malignancy. Consults were placed to GI and infectious disease. She had a flexible sigmoidoscopy with biopsies. Antibiotics were stopped per ID. Her post-op dx rectal cancer distal rectum to recto-sigmoid junction s/p bx. Plan for surgery/radiation/definitive treatment as outpatient. Stable for discharge. Discharge Information Condition at Discharge: Stable Follow Up: Weeks Disposition/Orders: D/C to Home Scheduled [losartan-hctz] 100,/25 , 1 PO DAILY, (Reported) Entered as Reported by: ESTEFANI MEYER RN on 11/04/19534 Last Action: Edited on 11/04/19 102 by NGA MCKEON [metoprolol] 25 , 25 MG PO DAILY, (Reported) Entered as Reported by: ESTEFANI MEYER RN on 11/04/19534 Last Action: Edited on 11/04/19 102 by NGA MCKEON Justicifation of Admission Dx: Justifications for Admission: Justification of Admission Dx: Yes (PERIRECTAL ABSCESS) MARTY LUCERO MD Nov 05, 2019 17:02
--- NOTE | 2019-11-05 17:55 | NUR ---
Discharge Note: ALEXX FERNANDO [address] [place] [address] Discharge instructions and discharge home medications reviewed with Patient and a copy given. All questions have been answered and understanding verbalized. The following instructions and handouts were given: F/U with Dr. Colon within two weeks. [phone]. F/U with Dr. Fishman within two weeks. [phone]. Discontinued lines and drains: Peripheral IV intact. Patient discharged to Home or Self Care with Family Member via Wheelchair
--- NOTE | 2019-11-06 08:48 | PDOC2 ---
CONSULT Date of Consult Date of Consult DATE: 11/05/19 TIME: 14:40 Reason for Consult Reason for Consult: Newly diagnosed rectal cancer Referring Physician Referring Physician: Dr. Welch Identification/Chief Complaint Chief Complaint Abdominal pain Source Source: Chart review, Patient History of Present Illness Reason for Visit: Emily Kaufman is a 54-year-old female who presented with worsening abdominal pain. Patient reports having noticed lower quadrant abdominal pain that has gradually worsened over the past month. Patient reports noticing blood in her stool for at least a year. She denies weight loss. She denies nausea vomiting. She denies pain anywhere else that is new for her. She received a CT abdomen and pelvis for further evaluation of her symptoms which showed rectal wa ll thickening with perirectal fluid collection suggestive of abscess. She underwent a colonoscopy which showed a rectal mass. This has been biopsied and pathology is pending at this time. Due to suspicion for invasive rectal cancer, oncology consultation has been sought. Patient is accompanied by 2 daughters and 1 son. She reports no additional concerns today. Past Medical History Cardiovascular: HTN Past Surgical History Past Surgical History: Cholecystectomy Family History Family History: Diabetes Social History No ALCOHOL: none Drugs: None Lives: with Family Current Problem List Problem List Problems Medical Problems: (1) Abdominal pain Status: Acute (2) Perirectal abscess Status: Acute Current Medications Current Medications Current Medications Morphine Sulfate (Morphine Sulfate) 4 mg PRN Q15MIN PRN IV/SQ PAIN GREATER THAN 3/10; Start 11/03/19 at 18:30; Stop 11/04/19 at 18:29; Status DC Sodium Chloride 1,000 ml @ 1,000 mls/hr Q1H IV Last administered on 11/03/19at 20:00; Start 11/03/19 at 18:29; Stop 11/03/19 at 19:28; Status DC Ondansetron HCl (Zofran) 4 mg 1X ONCE IVP ; Start 11/03/19 at 18:30; Stop 11/03/19 at 18:31; Status DC Iohexol (Omnipaque 300 Mg/ml) 60 ml 1X ONCE IV Last administered on 11/03/19at 21:12; Start 11/03/19 at 21:00; Stop 11/03/19 at 21:01; Status DC Info (CONTRAST GIVEN -- Rx MONITORING) 1 each PRN DAILY PRN MC SEE COMMENTS; Start 11/03/19 at 20:45; Stop 11/05/19 at 18:09; Status DC Piperacillin Sod/ Tazobactam Sod 3.375 gm/Sodium Chloride 50 ml @ 100 mls/hr 1X ONCE IV Last administered on 11/03/19at 23:00; Start 11/03/19 at 23:00; Stop 11/03/19 at 23:29; Status DC Dextrose (Dextrose 50%-Water Syringe) 25 gm 1X ONCE IV ; Start 11/04/19 at 01:45; Stop 11/04/19 at 01:46; Status Cancel Nicotine (Nicoderm Cq 21mg) 1 patch PRN DAILY PRN TD SMOKING CESSATION Last administered on 11/05/19at 12:39; Start 11/04/19 at 04:45; Stop 11/05/19 at 1 8:09; Status DC Lorazepam (Ativan Inj) 1 mg PRN Q4HRS PRN IVP ANXIETY / AGITATION Last administered on 11/05/19at 15:26; Start 11/04/19 at 10:45; Stop 11/05/19 at 18:09; Status DC Lidocaine HCl (Buffered Lidocaine 1%) 3 ml STK-MED ONCE .ROUTE ; Start 11/04/19 at 13:26; Stop 11/04/19 at 13:26; Status DC Polyethylene Glycol (miraLAX Powder BULK BOTTLE) 238 gm 1X ONCE PO Last adm inistered on 11/04/19at 17:28; Start 11/04/19 at 13:45; Stop 11/04/19 at 13:46; Status DC Piperacillin Sod/ Tazobactam Sod 3.375 gm/Sodium Chloride 50 ml @ 100 mls/hr Q6HRS IV Last administered on 11/05/19at 06:22; Start 11/04/19 at 18:00; Stop 11/05/19 at 10:34; Status DC Propofol (Diprivan) 200 mg STK-MED ONCE IV ; Start 11/05/19 at 08:52; Stop 11/05/19 at 08:53; Status DC Lidocaine HCl (Lidocaine Pf 2% Vial) 5 ml STK-MED ONCE .ROUTE ; Start 11/05/19 at 08:52; Stop 11/05/19 at 08:53; Status DC Sodium Chloride 1,000 ml @ 100 mls/hr 1X ONCE IV ; Start 11/05/19 at 10:00; Stop 11/05/19 at 19:59; Status UNV Ringer's Solution 1,000 ml @ 75 mls/hr 1X ONCE IV Last administered on 11/05/19at 08:30; Start 11/05/19 at 10:00; Stop 11/05/19 at 18:09; Status DC Iohexol (Omnipaque 300 Mg/ml) 60 ml 1X ONCE IV Last administered on 11/05/19at 14:25; Start 11/05/19 at 14:00; Stop 11/05/19 at 14:01; Status DC Info (CONTRAST GIVEN -- Rx MONITORING) 1 each PRN DAILY PRN MC SEE COMMENTS; Start 11/05/19 at 14:00; Stop 11/05/19 at 18:09; Status DC Active Scripts Active Reported [losartan-hctz] 100,/25 1 PO DAILY [metoprolol] 25 25 Mg PO DAILY Allergies Allergies: Coded Allergies: No Known Drug Allergies (Unverified , 11/05/19) ROS General: No: Chills, Night Sweats PSYCHOLOGICAL ROS: No: Anxiety, Behavioral Disorder Eyes: No Blurry vision, No Decreased vision HEENT: No: Heacaches, Visual Changes ALLERGY AND IMMUNOLOGY: No: Hives, Insect Bite Sensitivity Hematological and Lymphatic: No: Bleeding Problems, Blood Clots ENDOCRINE: YES: Malaise/lethargy; No: Breast Changes, Galactorrhea, Mood Swings Breast: No New/Changing Breast Lumps, No Nipple changes Respiratory: No: Cough, Hemoptysis Cardiovascular: No Chest Pain, No Palpitations Gastrointestinal: Yes Abdominal Pain, Yes Hematochezia; No Nausea, No Vomiting, No Diarrhea, No Constipation Genitourinary: No Dysuria, No Frequency Musculoskeletal: No Gait Disturbance, No Joint Pain Neurological: No Behavorial Changes, No Bowel/Bladder ControlChng Skin: No Dry Skin, No Eczema Physical Exam General: Alert, Oriented X3 HEENT: Atraumatic Lungs: Clear to auscultation Heart: Regular rate, Normal S1, Normal S2 Abdomen: Normal bowel sounds, Soft Extremities: No clubbing, No cyanosis Skin: No rashes, No breakdown Psych/Mental Status: Mental status NL MUSCULOSKELETAL: No swelling Vitals VITALS Vital Signs Date Time Temp Pulse Resp B/P (MAP) Pulse Ox O2 Delivery O2 Flow Rate FiO2 11/05/19 15:00 98.0 95 18 143/81 (101) 99 Room Air 98.0 11/05/19 09:41 4 Labs Labs Laboratory Tests Test 11/04/19 11:40 Prothrombin Time 13.2 SEC (11.7-14.0) Prothromb Time International Ratio 1.0 (0.8-1.1) Images Images CT abdomen and pelvis: 1. Rectal wall thickening with perirectal abscess and severe inflammatory changes. Recommend follow-up after treatment to exclude underlying lesion. 2. Mild pelvic lymphadenopathy. Recommend attention on follow-up. Assessment/Plan Assessment/Plan Assessment: Suspected rectal cancer Perirectal abscess Hypertension Recommendations: -I reviewed the patient's present history, and discussed results of CT of the abdomen and pelvis with the patient -I discussed the role of staging in outlining the treatment strategy in patients with rectal cancer -I recommended CT of the chest for completion of evaluation for distant metastasis -I explained to the patient the role of MRI with local staging in rectal cancer and recommended pelvic MRI. -I discussed that based on the appearance on CT, she likely has at least T3 disease and I would therefore anticipate recommending neoadjuvant concurrent chemoradiotherapy -We briefly discussed the management of locally advanced rectal cancer -She will be seen in follow-up next week to review results of CT chest and pelvic MRI and plan further treatment -I recommended and will arrange for radiation oncology consultation as an outpatient basis -She will be discussed at [facility] multidisciplinary tumor board next week Jam Menjivar MD Medical Oncology/Hematology Ph: [phone] RANJEET MENJIVAR MD Nov 06, 2019 08:48
--- NOTE | 2019-11-07 18:25 | RAD ---
STUDY: MRI pelvis with and without contrast INDICATION: Rectal cancer staging COMPARISON: Abdomen and pelvis CT with IV contrast 11/03/2019 TECHNIQUE: Multiplanar MR imaging of the pelvis performed both prior to and after the intravenous administration of 10 mL Dotarem IV. FINDING: Tumor location and morphology: Location from Anal Verge: Low It is 1.3 cm from the anal verge. Distance of inferior border of tumor to anorectal junction: 0 cm Relationship to anterior peritoneal reflection: Below Craniocaudal length: 6.9 cm Morphology: Semi-circumferential Mucinous: No T-category: T4b Structures with possible invasion (in T4b stage): Genitourinary: Superior left vaginal wall Vessels: No major vessel involvement Nerves: No lubrosacral nerve root involvement Pelvic muscles (excluding the floor): Obturator internus Pelvic floor: Pubococcygeus Bones: No bone invovlement For low rectal tumors: Invasion of sphincter complex : Yes Extent of sphincteric invasion: External sphincter Length of anal canal : 3.3 cm Extramural Vascular Invasion (EMVI) : No Circumferential resection margin (CRM), for T3 lesions only: Tumor involves peritonealized portion of rectum : No Shortest distance of tumor to mesorectal fascia (or anticipated circumerential resection margin): 0 Separate tumor deposit, suspicious lymph node, or EMVI threatening (<= 2mm) or invading (<=1mm) the mesorectal fascia yes Suspicious mesorectal lymph nodes and/or tumor deposits: Yes Number of suspicious lymph nodes: 11 Distance from tumor deposit to mesorectal fascia : 0 cm Extramesorectal lymph nodes 1 (a 13 mm left obturator node on image 15 series 6) Additional comments: None IMPRESSION: 1. Stage TIVb N2b 2. CRM : Involved 3. Suspicious node and/or EMVI near CRM: Yes 4. Sphincter involvement: Present 5. Suspicious extramesorectal nodesYes 6. Possible presacral space involvement as well. No definite bone involvement. Electronically signed by: Caleb Gaytan MD (11/07/2019 6:22 PM) [facility] [place]
--- NOTE | 2019-11-08 19:07 | PATHOLOGY ---
[facility] Accession Number: [id number] . 01 Material submitted: . rectum - RECTAL MASS BIOPSY . 01 Clinical history: . ABDOMINAL PAIN . 02 Diagnosis: Colorectal biopsies, rectal mass: - Adenocarcinoma, moderately-well differentiated. See comment. 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 02 Comment: Sections of the rectal mass biopsy reveal a malignant epithelial neoplasm. Several of the biopsy segments show irregular malignant glands which infiltrate an inflamed reactive stroma. The tumor cells show moderate nuclear pleomorphism. There is focal ulceration. There are several segments of rectal mucosa showing hyperplastic changes. The case is also examined by Dr. Lala, who concurs with the diagnosis. Results are reported to Dr. Herbie Green's nurse, at 4:07 p.m. on 11/08/19. 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 02 Electronically signed: . Dev Pina MD, Pathologist NPI- [id number] . 01 Gross description: . Received in formalin labeled "[place], Emily, rectal mass BX" are multiple colorado-brown soft tissue fragments measuring in aggregate 2.4 x 0.7 x 0.1 cm. The specimen is submitted entirely in A1. ([facility] [place]; 11/07/2019) [facility] 11/07/2019 1232 Local . 02 Pathologist provided ICD-10: C20 . 02 CPT . 337375 Specimen Comment: A courtesy copy of this report has been sent to [phone], [phone] Specimen Comment: [phone], Specimen Comment: Report sent to ,DR LUCERO,DR WIGGINS Specimen Comment: DR YOUNG Performed at: 01 [facility] [address], [place], [place] [id number] MD Yuniel Aguilera MD Phone: [phone] Performed at: 02 [facility] [address], [place] [id number] MD Dev Pnia MD Phone: [phone]
== END 2019-11-05 17:55 | disposition home or self-care (01) | DRG 375 ==
LOC: ER 17:24 → ED HOLD 23:00 → 5 NORTH 11-04 02:53
PROVIDERS: ADMIT Family Medicine; ATTEND Family Medicine
PROC: 0DBN8ZX Excision of Sigmoid Colon, Via Natural or Artificial Opening Endoscopic, Diagnostic (ICD-10-PCS; 2019-11-05)
PROC: 0DBP8ZX Excision of Rectum, Via Natural or Artificial Opening Endoscopic, Diagnostic (ICD-10-PCS; principal; 2019-11-05 09:00)
DX: C20 Malignant neoplasm of rectum (principal); K61.1 Rectal abscess; K62.5 Hemorrhage of anus and rectum; Z20.828 Contact with and (suspected) exposure to other viral communicable diseases; I10 Essential (primary) hypertension; Z56.0 Unemployment, unspecified; Z83.3 Family history of diabetes mellitus; Z90.710 Acquired absence of both cervix and uterus; Z90.49 Acquired absence of other specified parts of digestive tract
CPT/HCPCS: 36415; 45331; 71260; 72195; 74177; 80053; 81001; 83605; 83690; 85025; 85610; 87040; 87086; 87426; 88305; 96361; 96365; 99285; J2060; J2543; J2704; J7030; J7120; Q9967; G0378; U0003-CS

== ENCOUNTER → 2019-11-15 | Outpatient (CLI) | payer SELFPAY ==
[2019-11-05 15:00] VITALS: BP 143/81
[~2019-11-15] MED LIST: LOSA1TAB22 PO; METO25TA4 PO; losartan-hctz PO; metoprolol PO
== END | disposition home or self-care (01) ==
LOC: LAB 14:24
PROVIDERS: ATTEND Surgery
DX: Z01.812 Encounter for preprocedural laboratory examination (principal); C20 Malignant neoplasm of rectum; Z20.828 Contact with and (suspected) exposure to other viral communicable diseases
CPT/HCPCS: U0003-CS

== ENCOUNTER → 2019-11-15 | Outpatient (CLI) | payer SELFPAY ==
[2019-11-05 15:00] VITALS: BP 143/81
[2019-11-15 13:49] LABS: BASO # 0.1 x10^3/uL (0.0-0.2); BASO % 1 % (0-3); EOS # 0.2 x10^3/uL (0.0-0.7); EOS % 2 % (0-3); HEMATOCRIT 36.4 % (36.0-47.0); HEMOGLOBIN 12.3 g/dL (12.0-15.5); LYMPH # 2.7 x10^3/uL (1.0-4.8); LYMPH % 31 % (24-48); MEAN CORPUSCULAR HEMOGLOBIN 27 pg (25-35); MEAN CORPUSCULAR HGB CONC 34 g/dL (31-37); MEAN CORPUSCULAR VOLUME 81 fL (79-100); MONO # 0.5 x10^3/uL (0.0-1.1); MONO % 6 % (0-9); NEUT % 59 % (31-73); PLATELET COUNT 458 x10^3/uL (140-400); RED BLOOD COUNT 4.49 x10^6/uL (3.50-5.40); RED CELL DISTRIBUTION WIDTH 16.7 % (11.5-14.5); WHITE BLOOD COUNT 8.6 x10^3/uL (4.0-11.0)
[2019-11-15 14:27] LABS: CALCIUM 8.8 mg/dL (8.5-10.1); CREATININE 1.1 mg/dL (0.6-1.0); POTASSIUM 3.9 mmol/L (3.5-5.1)
[2019-11-15 14:32] LABS: ALBUMIN/GLOBULIN RATIO 0.7 (1.0-1.7); TOTAL BILIRUBIN 0.2 mg/dL (0.2-1.0); TOTAL PROTEIN 7.2 g/dL (6.4-8.2)
== END | disposition home or self-care (01) ==
LOC: ONCLAB 13:19
PROVIDERS: ATTEND Internal Medicine Hematology & Oncology
DX: C20 Malignant neoplasm of rectum (principal)
CPT/HCPCS: 36415; 80053; 82378; 85025

== ENCOUNTER 2019-11-19 07:32 | Day surgery (SDC) | payer SELFPAY ==
[~2019-11-19] VITALS: Ht 167.6 cm; Wt 93.0 kg
[~2019-11-19 07:32] MED LIST changes: +ACETAMINOPHEN 500 MG TABLET PO PRN; +BUPIVACAINE MPF 0.25% 30 ML VIAL. ONE; +HEPARIN PF 500 UNIT/5 ML DISP.SYRIN. IVP ONE; +HEPARIN for IV BOLUS 10,000 UNIT/10 ML VIAL. ONE; +HYDROmorphone 2 MG/ML VIAL IV PRN; +IV RINGERS,LACTATED 1000ML 1,000 ML IV SCH; +LIDOCAINE 1% PF 2 ML VIAL. ID PRN; +MORPHINE SULFATE 2 MG/ML VIAL. IV PRN; +ONDANSETRON PF 4 MG/2 ML VIAL. IV PRN; +PROCHLORPERAZINE 10 MG/2 ML VIAL. IV PRN; +fentaNYL PF VIAL 100 MCG/2 ML VIAL IV PRN
[2019-11-19] MEDS ORDERED: DEXAMETHASONE SOD PHOS 4 MG/ML VIAL ONE (08:07)
[2019-11-19] MEDS ORDERED: SEVOFLURANE 31 TO 60 MINUTES. IH ONE (08:07)
[2019-11-19] MEDS ORDERED: ONDANSETRON PF 4 MG/2 ML VIAL. ONE (08:07)
[2019-11-19] MEDS ORDERED: PROPOFOL 10 MG/ML (20ML) VIAL. IV ONE (08:07)
[2019-11-19] MEDS ORDERED: LIDOCAINE 2% PF 5 ML VIAL. ONE (08:07)
[2019-11-19] MEDS ORDERED: PHENYLEPHRINE in 0.9% NACL PF 1 MG/10 ML SYRINGE. IV ONE (09:07)
--- NOTE | 2019-11-19 09:11 | PDOC4 ---
Operative Note Operative Note Date: 2019 at 0906 Preoperative diagnosis: Rectal cancer Postoperative diagnosis: Same Procedure: Left subclavian Port-A-Cath placement Surgeon: Isaiah Specimen: None Tatian: Patient is a 54-year-old female recently diagnosed with a rectal cancer needing preoperative chemoradiation needing long-term venous access for chemotherapy. Procedure of Port-A-Cath placement was explained to the patient detail risk-benefit were also discussed including bleeding infection possible pneumothorax alternatives to this procedure also discussed with patient who seemed to understand and gave both verbal and written consent to have the procedure performed. Patient was taken to the operating room placed in the supine position general anesthesia was initiated once patient was sleeping intubated her chest and neck were prepped and draped usual sterile fashion using ChloraPrep. An area over the deltopectoral groove on the left side was injected with quarter percent Marcaine with epinephrine incision was made with 15 blade scalpel is carried down through the subcutaneous tissues looking for the cephalic vein could not be visualized. At this point the left subclavian was accessed to be needle and Seldinger wire was placed this was checked under fluoroscopy showed the wire passing to the superior vena cava. A large peel- away dilator was placed over the wire the dilator and wire removed catheter was placed through the peel-away the peel-away was then removed this confirmed placement by fluoroscopy. Port was placed on the end of the catheter this was sewn into place and a pocket on the anterior chest wall with Prolene. Port was accessed there is good blood return easily flushed and then it was flushed with 100 units/mL of heparin and then locked with 1-1/2 cc of 1000 units/mL of heparin. Wound was closed in 2 layers the deep layer running 3-0 Vicryl the skin was reapproximated for subcuticular Monocryl Mastisol Steri-Strips and island dressing were applied. Patient was awakened extubated operating room taken to recovery in stable condition all sponge instrument needle counts listed as correct estimated blood loss 10 mL. DIMAS NASSAR MD Nov 19, 2019 09:11
--- NOTE | 2019-11-19 09:13 | DISCH ---
DISCHARGE INSTRUCTIONS Condition on Discharge Condition on Discharge: Stable Activity After Discharge Activity Instructions for Disc: Resume previous activity Diet after Discharge Diet after Discharge: Regular Wound Incision Care Other wound/incision instructi: May shower in 24 hours Checks after Discharge Checks after discharge: Check blood press - daily, Check blood sugar, ac/hs, Check your Temp as needed Contacting the DRArti after DC Call your doctor for: If your condition worsens Follow-Up Follow up with: Dr. Nassar in 2 weeks DIMAS NASSAR MD Nov 19, 2019 09:13
[2019-11-19 09:42] VITALS: BP 104/67
--- NOTE | 2019-11-19 10:00 | RAD ---
Examination: PORTABLE CHEST 1V History: Central venous catheter placement in PACU Comparison/Correlation: 11/05/2019 CT chest with contrast Findings: Portable upright frontal view of the chest was obtained. Heart size is borderline. Vascularity appears normal. No infiltrate or pleural effusion. No pneumothorax. Left-sided central venous catheter infusion port is identified. The tip of the catheter terminates overlying the left brachiocephalic vein-inferior vena cava junction. No other catheter is identified. Bony structures are unremarkable. Soft tissues unremarkable. Impression: No infiltrate. No pneumothorax. Electronically signed by: Keith Hodges MD (11/19/2019 9:57 AM) [id number]
== END 2019-11-19 10:15 | disposition home or self-care (01) ==
LOC: SURG 07:32
PROVIDERS: ATTEND Surgery
DX: C20 Malignant neoplasm of rectum (principal); I10 Essential (primary) hypertension; F17.210 Nicotine dependence, cigarettes, uncomplicated; Z83.3 Family history of diabetes mellitus; Z79.899 Other long term (current) drug therapy
CPT/HCPCS: 36556; 71045; J0690; J1100; J1642; J1644; J2370; J2405; J2704; J3490

== ENCOUNTER 2019-11-23 12:26 | Emergency (ER) | payer SELFPAY ==
[~2019-11-23] VITALS: Ht 167.6 cm; Wt 92.8 kg
--- NOTE | 2019-11-23 12:50 | PHYS DOC ---
Past Medical History Past Medical History: Hypertension Additional Past Medical Histor: Pt has not taken BP medication in a few days Past Surgical History: Cholecystectomy, Hysterectomy, Tonsillectomy Smoking Status: Current Every Day Smoker Alcohol Use: None Drug Use: None General Adult EDM: Chief Complaint: NEURO SYMPTOMS/DEFICITS HPI: HPI: Patient is a 54 year old female with history of colorectal cancer was taken here from interventional radiology department due to strokelike symptoms. Patient had an Canjzd-g-Trye implanted on last Friday11/19/19. Today she went to the cancer center to start her chemo treatment. They could not access the port today so they sent her to interventional radiology department to check the location of the port. When the interventional radiologist, Dr. Carmen, flushed the port with contrast material, patient said her right hand became numb and then the whole RUE became weak, her speech was slurred, lasted for a few minute, happened at 11:[address] Carmen indicated that the INFUSAL PORT WAS MISPLACED IN THE SUBCLAVIAN ARTERY INSTEAD OF THE SUBCLAVIAN VEIN. He cannot remove it because there is no cardiothoracic surgery to back him up. He did a CT scan of her head and did not show any bleeding. By the time patient was brought to the ER, she was completely back to her baseline. NO neurological deficit. Review of Systems: Review of Systems: Constitutional: Denies fever or chills. [] Eyes: Denies change in visual acuity. [] HENT: Denies nasal congestion or sore throat. [] Respiratory: Denies cough or shortness of breath. [] Cardiovascular: Denies chest pain or edema. [] GI: Denies abdominal pain, nausea, vomiting, bloody stools or diarrhea. [] : Denies dysuria. [] Musculoskeletal: Denies back pain or joint pain. [] Integument: Denies rash. [] Neurologic: Denies headache, focal weakness or sensory changes. [] Endocrine: Denies polyuria or polydipsia. [] Lymphatic: Denies swollen glands. [] Psychiatric: Denies depression or anxiety. [] Heart Score: Risk Factors: Risk Factors: DM, Current or recent (<one month) smoker, HTN, HLP, family history of CAD, obesity. Risk Scores: Score 0 - 3: 2.5% MACE over next 6 weeks - Discharge Home Score 4 - 6: 20.3% MACE over next 6 weeks - Admit for Clinical Observation Score 7 - 10: 72.7% MACE over next 6 weeks - Early Invasive Strategies Current Medications: Current Medications Medications (Trade) Dose Ordered Sig/Oracio Start Time Stop Time Status Last Admin Dose Admin Heparin Sodium (Porcine) (Heparin Sodium) 5,000 unit 1X ONCE 11/23/19 12:45 11/23/19 12:46 UNV Heparin Sodium/ Dextrose 250 ml @ 0 mls/hr CONT PRN 11/23/19 12:45 UNV Allergies: Allergies: Allergies Coded Allergies Type Severity Reaction Last Updated Verified No Known Drug Allergies 11/19/19 No Physical Exam: PE: Constitutional: Well developed, well nourished, no acute distress, non-toxic appearance. [] HENT: Normocephalic, atraumatic, bilateral external ears normal, oropharynx moist, no oral exudates, nose normal. [] Eyes: PERRLA, EOMI, conjunctiva normal, no discharge. [] Neck: Normal range of motion, no tenderness, supple, no stridor. [] Cardiovascular:Heart rate regular rhythm, no murmur [] Lungs & Thorax: Bilateral breath sounds clear to auscultation [] Abdomen: Bowel sounds normal, soft, no tenderness, no masses, no pulsatile masses. [] Skin: Warm, dry, no erythema, no rash. [] Back: No tenderness, no CVA tenderness. [] Extremities: No tenderness, no cyanosis, no clubbing, ROM intact, no edema. [] Neurologic: Alert and oriented X 3, normal motor function, normal sensory function, no focal deficits noted. [] Psychologic: Affect normal, judgement normal, mood normal. [] Current Patient Data: Labs: Laboratory Tests Test 11/23/19 12:31 Glucose (Fingerstick) 188 mg/dL (70-99) H Vital Signs: Vital Signs Date Time Temp Pulse Resp B/P (MAP) Pulse Ox O2 Delivery O2 Flow Rate FiO2 11/23/19 12:26 97.7 114 20 138/85 (102) 98 Room Air 97.7 EKG: EKG: [] Radiology/Procedures: Radiology/Procedures: [] Course & Med Decision Making: Course & Med Decision Making Pertinent Labs and Imaging studies reviewed. (See chart for details) CALLED [facility], DISCUSSED WITH THE NEUROLOGIST THERE. DR. CARMEN ALREADY DISCUSSED WITH THE VASCULAR SURGEON THERE. Dr. Zara Cobb, VASCULAR SURGEON ACCEPTED THE PATIENT FOR TRANSFER THERE. Khushi Disclaimer: Khushi Disclaimer: This electronic medical record was generated, in whole or in part, using a voice recognition dictation system. Departure Departure Impression: Primary Impression: Encounter for care related to Port-a-Cath Additional Impression: TIA (transient ischemic attack) Disposition: 02 TRANSFER SHT-PENDING SALE TO [facility] ([facility]) Condition: STABLE Referrals: LEWIS WIGGINS PA-C (PCP) SEYMOUR GRAF DO Nov 23, 2019 12:50
[2019-11-23] MEDS ORDERED: HEPARIN for IV BOLUS 10,000 UNIT/10 ML VIAL. IV ONE (13:00)
[2019-11-23] MEDS ORDERED: HEPARIN 25,000UTS/250ML PREMIX 250 ML IV PRN (13:00)
[2019-11-23 13:17] LABS: BASO % 0 % (0-3); EOS # 0.5 x10^3/uL (0.0-0.7); EOS % 6 % (0-3); HEMATOCRIT 38.7 % (36.0-47.0); LYMPH # 3.2 x10^3/uL (1.0-4.8); LYMPH % 34 % (24-48); MEAN CORPUSCULAR HEMOGLOBIN 27 pg (25-35); MEAN CORPUSCULAR HGB CONC 34 g/dL (31-37); MEAN CORPUSCULAR VOLUME 81 fL (79-100); MONO # 0.8 x10^3/uL (0.0-1.1); MONO % 9 % (0-9); NEUT # 4.8 x10^3/uL (1.8-7.7); NEUT % 51 % (31-73); PLATELET COUNT 337 x10^3/uL (140-400); RED BLOOD COUNT 4.76 x10^6/uL (3.50-5.40); RED CELL DISTRIBUTION WIDTH 16.9 % (11.5-14.5); WHITE BLOOD COUNT 9.4 x10^3/uL (4.0-11.0)
[2019-11-23 13:32] LABS: PROTHROMBIN TIME PATIENT 12.9 SEC (11.7-14.0)
[2019-11-23 13:51] LABS: CALCIUM 9.3 mg/dL (8.5-10.1); POTASSIUM 3.7 mmol/L (3.5-5.1)
[2019-11-23 13:56] LABS: ALBUMIN 2.8 g/dL (3.4-5.0); ALBUMIN/GLOBULIN RATIO 0.7 (1.0-1.7); MAGNESIUM 2.2 mg/dL (1.8-2.4); TOTAL BILIRUBIN 0.2 mg/dL (0.2-1.0); TOTAL PROTEIN 7.1 g/dL (6.4-8.2)
[2019-11-23 15:04] VITALS: BP 131/75
== END 2019-11-23 15:16 | disposition short-term general hospital (02) ==
LOC: ER 12:26
DX: G45.9 Transient cerebral ischemic attack, unspecified (principal); Z45.2 Encounter for adjustment and management of vascular access device; I10 Essential (primary) hypertension; F17.200 Nicotine dependence, unspecified, uncomplicated
CPT/HCPCS: 36415; 80053; 82962; 83735; 84484; 85025; 85610; 85730; 96361; 96374; 99285; J1644

== ENCOUNTER → 2019-11-23 | Outpatient (CLI) | payer SELFPAY ==
[~2019-11-23] VITALS: Ht 167.6 cm; Wt 90.7 kg
[~2019-11-23] MED LIST changes: -ACETAMINOPHEN 500 MG TABLET PO PRN; -BUPIVACAINE MPF 0.25% 30 ML VIAL. ONE; +CONTRAST GIVEN. MC PRN; -HEPARIN PF 500 UNIT/5 ML DISP.SYRIN. IVP ONE; -HEPARIN for IV BOLUS 10,000 UNIT/10 ML VIAL. ONE; -HYDROmorphone 2 MG/ML VIAL IV PRN; +IOHEXOL 240 MG/ML 50ML VIAL. IV ONE; +IOHEXOL 240 MG/ML 50ML VIAL. ONE; -IV RINGERS,LACTATED 1000ML 1,000 ML IV SCH; -LIDOCAINE 1% PF 2 ML VIAL. ID PRN; +LIDOCAINE WITH 8.4% SOD BICARB 3 ML DISP.SYRIN. INJ ONE; +LIDOCAINE WITH 8.4% SOD BICARB 3 ML DISP.SYRIN. ONE; -MORPHINE SULFATE 2 MG/ML VIAL. IV PRN; -ONDANSETRON PF 4 MG/2 ML VIAL. IV PRN; -PROCHLORPERAZINE 10 MG/2 ML VIAL. IV PRN; -fentaNYL PF VIAL 100 MCG/2 ML VIAL IV PRN
[2019-11-23 11:15] VITALS: BP 138/85
--- NOTE | 2019-11-23 12:30 | NUR ---
pt A&O x4. denies pain, nausea or dizziness. she had a minute of numbness then flaccidness in rt arm. she did not notice if she had any in her rt leg. she also had a minute of garbled speech . the flaccidity of the right arm fully resolved over 5 minutes. pt states she was aware the whole time about what was an abnormal occurrence for her. Dr. Salvador spoke to Vascular Dr. Cobb and it was decided to take pt to ED to start a heparin gtt and then send her on to where they have backup cardiovascular surgery
--- NOTE | 2019-11-23 12:38 | RAD ---
EXAM: CT Head without IV contrast INDICATION: Reason: Stroke Symptoms / Spl. Instructions: / History: TECHNIQUE: Multi-detector row CT images were obtained of the head without the use of IV contrast. All CT scans performed at this facility utilize dose optimization techniques as appropriate to the exam, including the following: Automated exposure control and adjustment of the mA and/or KV according to patient size (this includes techniques or standardized protocols for targeted exams where dose is indication/reason for exam). COMPARISON: None FINDINGS: BRAIN PARENCHYMA: No evidence of acute intracerebral hemorrhage. No mass effect. There is loss of vizcaino-white differentiation in the left occipital lobe with associated moderately hypointense low-density. There is focal hypoattenuation in the subcortical white matter of the right occipital lobe also present, similar to slightly more hypodense. These are present in the setting of more extensive subcortical white matter low density. VENTRICLES & EXTRA-AXIAL SPACES: Ventricles are within normal limits. Basilar cisterns are patent. No pathologic extra-axial fluid collection or mass. ORBITS: Orbital contents are unremarkable. SINUSES: Visualized paranasal sinuses and mastoid air cells are clear. OSSEOUS & SOFT TISSUES: Calvarium and skull base are intact. 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 MRI could be helpful in further evaluation if an acute stroke is clinically suspected. Discussed with Dr. Salvador by telephone at 12:32 PM on 11/23/2019 Electronically signed by: Caleb Gaytan MD (11/23/2019 12:35 PM) [id number]
--- NOTE | 2019-11-23 13:52 | RAD ---
Fluoroscopically guided evaluation of left-sided port 11/23/2019 INDICATION: Recently placed left subclavian port. Difficulty accessing the port was noted at the patient's first chemotherapy session. Blood could not be freely aspirated from the port. Discussion: The procedure was explained in its entirety to the patient or the patients designated guest services representative by a member of the treatment team, including a discussion of the risks, benefits and commonly accepted alternatives to the procedure, as well as the expected consequences of no therapy whatsoever. Discussion of the risks included, but was not limited to, those that are most frequent and those that are rare but possibly severe or life-threatening, as well as the possibility of unforeseen complications. All elements of maximal sterile barrier technique including the use of a cap, mask , sterile gloves, sterile drapes, appropriate hand hygiene, and 2% chlorhexidine for cutaneous antisepsis (or acceptable alternative antiseptic per current guidelines) were followed for this procedure. The left chest was prepped and draped as described. 1% lidocaine was administered overlying the port reservoir. Fluoroscopic evaluation was performed demonstrating abnormal course of the port catheter with catheter tip positioned just to the right of midline, over the upper mediastinum. The the port was accessed, blood was freely aspirated. The port was flushed with approximately 8 cc of saline. Contrast was administered through the port demonstrating catheter tip in the ascending thoracic aorta. During this process the patient experienced transient right upper extremity weakness, and numbness which resolved spontaneously over approximately 15 minutes. The needle was removed. The patient was transferred to the er, and taken for a noncontrast ct of the head, in anticipation of possible anticoagulation in the setting of new neurological finding. The referring physician was contacted, as well as the ER physician, and vascular surgery. Given lack of CV surgery backup, plan at time of this report was for transfer to tertiary care center. Total fluoroscopy time: 3.4 min Dose area product: 23 Gycm2 Impression: The port cathter lies in the ascending thoracic aorta. Access appears to be the left subclavian artery. Transient right upper extremity neurological deficit noted during exam, appearing to completely resolve. Transfer to ER, head CT, heparin drip, and initiation of transfer to center with CV surgical backup initiated.
== END ==
LOC: INTRAD 10:56
PROVIDERS: ATTEND Internal Medicine Hematology & Oncology
DX: Z45.2 Encounter for adjustment and management of vascular access device (principal); I63.89 Other cerebral infarction; R29.818 Other symptoms and signs involving the nervous system; I10 Essential (primary) hypertension; F17.210 Nicotine dependence, cigarettes, uncomplicated; Z79.899 Other long term (current) drug therapy; Z83.3 Family history of diabetes mellitus
CPT/HCPCS: 36598; 70450; 75820; J3490

== ENCOUNTER → 2019-11-23 | Outpatient (CLI) | payer SELFPAY ==
[~2019-11-23] MED LIST changes: -CONTRAST GIVEN. MC PRN; -IOHEXOL 240 MG/ML 50ML VIAL. IV ONE; -IOHEXOL 240 MG/ML 50ML VIAL. ONE; -LIDOCAINE WITH 8.4% SOD BICARB 3 ML DISP.SYRIN. INJ ONE; -LIDOCAINE WITH 8.4% SOD BICARB 3 ML DISP.SYRIN. ONE
[2019-11-23 15:04] VITALS: BP 131/75
== END ==
LOC: ONCLAB 11-22 08:00
PROVIDERS: ATTEND Internal Medicine Hematology & Oncology
DX: C20 Malignant neoplasm of rectum (principal)
CPT/HCPCS: 36415; 82378

== ENCOUNTER → 2019-12-06 | Outpatient (CLI) | payer SELFPAY ==
[2019-11-23 15:04] VITALS: BP 131/75
[2019-12-06 08:56] LABS: BASO # 0.1 x10^3/uL (0.0-0.2); BASO % 1 % (0-3); EOS # 0.5 x10^3/uL (0.0-0.7); EOS % 5 % (0-3); HEMATOCRIT 35.2 % (36.0-47.0); HEMOGLOBIN 11.6 g/dL (12.0-15.5); LYMPH # 3.1 x10^3/uL (1.0-4.8); LYMPH % 37 % (24-48); MEAN CORPUSCULAR HEMOGLOBIN 27 pg (25-35); MEAN CORPUSCULAR HGB CONC 33 g/dL (31-37); MEAN CORPUSCULAR VOLUME 83 fL (79-100); MONO # 0.7 x10^3/uL (0.0-1.1); MONO % 8 % (0-9); NEUT % 48 % (31-73); PLATELET COUNT 420 x10^3/uL (140-400); RED BLOOD COUNT 4.26 x10^6/uL (3.50-5.40); RED CELL DISTRIBUTION WIDTH 17.3 % (11.5-14.5); WHITE BLOOD COUNT 8.4 x10^3/uL (4.0-11.0)
[2019-12-06 09:06] LABS: CALCIUM 8.8 mg/dL (8.5-10.1); POTASSIUM 3.2 mmol/L (3.5-5.1)
[2019-12-06 09:13] LABS: ALBUMIN 2.8 g/dL (3.4-5.0); ALBUMIN/GLOBULIN RATIO 0.7 (1.0-1.7); TOTAL BILIRUBIN 0.2 mg/dL (0.2-1.0)
== END ==
LOC: ONCLAB 08:31
PROVIDERS: ATTEND Internal Medicine Hematology & Oncology
DX: C20 Malignant neoplasm of rectum (principal)
CPT/HCPCS: 36415; 80053; 82378; 85025

== ENCOUNTER → 2019-12-14 | Outpatient (CLI) | payer SELFPAY ==
[2019-11-23 15:04] VITALS: BP 131/75
[2019-12-14 11:17] LABS: CALCIUM 8.7 mg/dL (8.5-10.1); CREATININE 1.2 mg/dL (0.6-1.0)
[2019-12-14 11:28] LABS: ALBUMIN 2.7 g/dL (3.4-5.0); ALBUMIN/GLOBULIN RATIO 0.7 (1.0-1.7); MAGNESIUM 1.8 mg/dL (1.8-2.4); TOTAL BILIRUBIN 0.1 mg/dL (0.2-1.0); TOTAL PROTEIN 6.6 g/dL (6.4-8.2)
[2019-12-14 11:30] LABS: BASO # 0.1 x10^3/uL (0.0-0.2); BASO % 0 % (0-3); EOS # 0.6 x10^3/uL (0.0-0.7); EOS % 3 % (0-3); HEMATOCRIT 34.4 % (36.0-47.0); HEMOGLOBIN 11.5 g/dL (12.0-15.5); LYMPH # 3.1 x10^3/uL (1.0-4.8); LYMPH % 13 % (24-48); MEAN CORPUSCULAR HEMOGLOBIN 28 pg (25-35); MEAN CORPUSCULAR HGB CONC 34 g/dL (31-37); MEAN CORPUSCULAR VOLUME 83 fL (79-100); MONO # 2.1 x10^3/uL (0.0-1.1); MONO % 9 % (0-9); NEUT # 17.3 x10^3/uL (1.8-7.7); NEUT % 75 % (31-73); PLATELET COUNT 315 x10^3/uL (140-400); RED BLOOD COUNT 4.15 x10^6/uL (3.50-5.40); RED CELL DISTRIBUTION WIDTH 16.9 % (11.5-14.5); WHITE BLOOD COUNT 23.1 x10^3/uL (4.0-11.0)
[2019-12-14 13:17] LABS: % BANDS 20 % (0-9); % BASOS 1 % (0-3); % EOS 2 % (0-5); % LYMPHS 10 % (24-48); % MONOS 11 % (0-10); % SEGS 56 % (35-66)
[2019-12-14 13:18] LABS: ANISOCYTOSIS SLIGHT; PLT ESTIMATE ADEQUATE (ADEQUATE); SMUDGE CELLS PRESENT
== END ==
LOC: ONCLAB 10:31
PROVIDERS: ATTEND Internal Medicine Hematology & Oncology
DX: C20 Malignant neoplasm of rectum (principal)
CPT/HCPCS: 36415; 80053; 83615; 83735; 85007; 85025

== ENCOUNTER → 2019-12-22 | Outpatient (CLI) | payer SELFPAY ==
[2019-11-23 15:04] VITALS: BP 131/75
[2019-12-22 10:19] LABS: CALCIUM 8.9 mg/dL (8.5-10.1); CREATININE 0.8 mg/dL (0.6-1.0); POTASSIUM 3.8 mmol/L (3.5-5.1)
[2019-12-22 10:24] LABS: ALBUMIN 2.6 g/dL (3.4-5.0); ALBUMIN/GLOBULIN RATIO 0.6 (1.0-1.7); TOTAL BILIRUBIN 0.2 mg/dL (0.2-1.0); TOTAL PROTEIN 6.9 g/dL (6.4-8.2)
[2019-12-22 10:26] LABS: BASO # 0.1 x10^3/uL (0.0-0.2); BASO % 1 % (0-3); EOS # 0.1 x10^3/uL (0.0-0.7); EOS % 2 % (0-3); HEMATOCRIT 32.4 % (36.0-47.0); HEMOGLOBIN 10.8 g/dL (12.0-15.5); LYMPH % 27 % (24-48); MEAN CORPUSCULAR HEMOGLOBIN 28 pg (25-35); MEAN CORPUSCULAR HGB CONC 33 g/dL (31-37); MEAN CORPUSCULAR VOLUME 84 fL (79-100); MONO # 0.6 x10^3/uL (0.0-1.1); MONO % 8 % (0-9); NEUT # 4.6 x10^3/uL (1.8-7.7); NEUT % 62 % (31-73); PLATELET COUNT 353 x10^3/uL (140-400); RED BLOOD COUNT 3.87 x10^6/uL (3.50-5.40); RED CELL DISTRIBUTION WIDTH 17.7 % (11.5-14.5); WHITE BLOOD COUNT 7.3 x10^3/uL (4.0-11.0)
== END ==
LOC: ONCLAB 09:49
PROVIDERS: ATTEND Internal Medicine Hematology & Oncology
DX: C20 Malignant neoplasm of rectum (principal)
CPT/HCPCS: 36415; 80053; 82378; 85025

== ENCOUNTER → 2020-01-03 | Outpatient (CLI) | payer SELFPAY ==
--- NOTE | 2020-01-03 17:01 | RAD ---
EXAMINATION: VENOUS LOWER EXTREMITY LEFT HISTORY: Left leg swelling COMPARISON/CORRELATION: None FINDINGS: Left lower extremity duplex venous ultrasound exam was performed. Grayscale, color Doppler, and spectral Doppler imaging was performed. Compression and augmentation was performed. The left common femoral vein, superficial femoral vein, proximal profunda femoris vein, popliteal vein, and great saphenofemoral junction are normal with no evidence of deep venous thrombus. Visualized left calf veins are unremarkable. Normal compressibility and augmentation is evident. IMPRESSION: Normal left lower extremity duplex ultrasound exam. No evidence of deep venous thrombus involving the left lower extremity. Electronically signed by: Keith Hodges MD (01/03/2020 4:58 PM) [facility]
== END ==
LOC: US 16:06
PROVIDERS: ATTEND Internal Medicine Hematology & Oncology
DX: R60.0 Localized edema (principal)
CPT/HCPCS: 93971

== ENCOUNTER → 2020-01-05 | Outpatient (CLI) | payer SELFPAY ==
[2020-01-05 10:08] LABS: BASO % 1 % (0-3); EOS # 0.2 x10^3/uL (0.0-0.7); EOS % 4 % (0-3); HEMATOCRIT 33.5 % (36.0-47.0); HEMOGLOBIN 11.1 g/dL (12.0-15.5); LYMPH # 1.9 x10^3/uL (1.0-4.8); LYMPH % 39 % (24-48); MEAN CORPUSCULAR HEMOGLOBIN 28 pg (25-35); MEAN CORPUSCULAR HGB CONC 33 g/dL (31-37); MEAN CORPUSCULAR VOLUME 83 fL (79-100); MONO # 0.5 x10^3/uL (0.0-1.1); MONO % 10 % (0-9); NEUT # 2.3 x10^3/uL (1.8-7.7); NEUT % 47 % (31-73); PLATELET COUNT 290 x10^3/uL (140-400); RED BLOOD COUNT 4.02 x10^6/uL (3.50-5.40); RED CELL DISTRIBUTION WIDTH 17.1 % (11.5-14.5); WHITE BLOOD COUNT 4.9 x10^3/uL (4.0-11.0)
[2020-01-05 10:17] LABS: CALCIUM 8.5 mg/dL (8.5-10.1); CREATININE 1.2 mg/dL (0.6-1.0); POTASSIUM 3.2 mmol/L (3.5-5.1)
[2020-01-05 10:30] LABS: ALBUMIN 2.4 g/dL (3.4-5.0); ALBUMIN/GLOBULIN RATIO 0.6 (1.0-1.7); TOTAL BILIRUBIN 0.1 mg/dL (0.2-1.0); TOTAL PROTEIN 6.6 g/dL (6.4-8.2)
== END ==
LOC: ONC 09:47
PROVIDERS: ATTEND Internal Medicine Hematology & Oncology
DX: C20 Malignant neoplasm of rectum (principal); I10 Essential (primary) hypertension; F17.210 Nicotine dependence, cigarettes, uncomplicated; Z79.899 Other long term (current) drug therapy; Z86.73 Personal history of transient ischemic attack (TIA), and cerebral infarction without residual deficits
CPT/HCPCS: 36415; 80053; 82378; 85025

== ENCOUNTER → 2020-01-19 | Outpatient (CLI) | payer SELFPAY ==
[2020-01-19 10:57] LABS: BASO % 1 % (0-3); EOS # 0.1 x10^3/uL (0.0-0.7); EOS % 3 % (0-3); HEMATOCRIT 32.9 % (36.0-47.0); HEMOGLOBIN 11.1 g/dL (12.0-15.5); LYMPH # 2.3 x10^3/uL (1.0-4.8); LYMPH % 44 % (24-48); MEAN CORPUSCULAR HEMOGLOBIN 28 pg (25-35); MEAN CORPUSCULAR HGB CONC 34 g/dL (31-37); MEAN CORPUSCULAR VOLUME 83 fL (79-100); MONO # 0.8 x10^3/uL (0.0-1.1); MONO % 16 % (0-9); NEUT # 1.9 x10^3/uL (1.8-7.7); NEUT % 37 % (31-73); PLATELET COUNT 213 x10^3/uL (140-400); RED BLOOD COUNT 3.99 x10^6/uL (3.50-5.40); RED CELL DISTRIBUTION WIDTH 18.5 % (11.5-14.5); WHITE BLOOD COUNT 5.2 x10^3/uL (4.0-11.0)
[2020-01-19 10:58] LABS: ALBUMIN 2.6 g/dL (3.4-5.0); ALBUMIN/GLOBULIN RATIO 0.6 (1.0-1.7); CALCIUM 8.7 mg/dL (8.5-10.1); CREATININE 0.9 mg/dL (0.6-1.0); GFR 65.5; TOTAL BILIRUBIN 0.2 mg/dL (0.2-1.0); TOTAL PROTEIN 6.8 g/dL (6.4-8.2)
[2020-01-19 11:04] LABS: POTASSIUM 2.8 mmol/L (3.5-5.1)
[2020-01-19 13:08] LABS: % ATYL 5 % (0-0); % BANDS 6 % (0-9); % LYMPHS 39 % (24-48); % MONOS 9 % (0-10); % SEGS 41 % (35-66); ANISOCYTOSIS SLIGHT; PLT ESTIMATE ADEQUATE (ADEQUATE)
== END ==
LOC: ONCLAB 08:57
PROVIDERS: ATTEND Internal Medicine Hematology & Oncology
DX: C20 Malignant neoplasm of rectum (principal)
CPT/HCPCS: 36415; 80053; 82378; 85007; 85025

== ENCOUNTER → 2020-01-31 | Outpatient (CLI) | payer SELFPAY ==
[~2020-01-31] MED LIST changes: +HEPARIN PF 500 UNIT/5 ML DISP.SYRIN. IVP ONE; +IOHEXOL 240 MG/ML 50ML VIAL. PO ONE; +IOHEXOL 300 MG/ML 100ML VIAL. IV ONE
--- NOTE | 2020-01-31 10:32 | RAD ---
CT scan of pelvis with contrast 01/31/2020 CLINICAL HISTORY: Rectal cancer. History of perirectal abscess. TECHNIQUE: After the oral and intravenous administration of contrast, contiguous, 3 mm axial sections were obtained through the abdomen and pelvis. 75 cc of Omnipaque 300 were administered intravenously during this examination. One or more of the following individualized dose reduction techniques were utilized for this study: 1. Automated exposure control. 2. Adjustment of the mA and/or kV according to patient size. 3. Use of iterative reconstruction technique. FINDINGS: Comparison study is dated 11/03/2019. A small air-containing fluid collection consistent with the patient's history of a perirectal abscess is seen to the left of the inferior rectum. This measures 2.5 x 2.0 x 1.7 cm in AP, craniocaudal and transverse dimensions. This has decreased in size since the previous study where it measured 3.5 x 3 .8 x 3.5 cm in size. No new abnormal fluid collection is seen. Atherosclerotic calcification of the distal abdominal aorta and its branches is noted. A moderate latoya unt of stool is seen within the rectum and sigmoid colon. Calcifications are seen within the pelvis c onsistent with phleboliths. The patient is post hysterectomy. No adnexal mass is seen. No free fluid is noted. The osseous structures are unchanged. IMPRESSION: A small air-containing fluid collection is seen to the left of the inferior rectum consis tent with the patient's history of a perirectal abscess. This has decreased has size since the previo us study. No new abnormal fluid collection is seen. Electronically signed by: Howard Hawkins MD (01/31/2020 10:30 AM) [place] [id number]
== END ==
LOC: CT 08:20
PROVIDERS: ATTEND Internal Medicine Hematology & Oncology
DX: C20 Malignant neoplasm of rectum (principal); I70.0 Atherosclerosis of aorta; Z90.710 Acquired absence of both cervix and uterus
CPT/HCPCS: 72193; J1642; Q9966; Q9967

== ENCOUNTER → 2020-02-02 | Outpatient (CLI) | payer SELFPAY ==
[~2020-02-02] MED LIST changes: -HEPARIN PF 500 UNIT/5 ML DISP.SYRIN. IVP ONE; -IOHEXOL 240 MG/ML 50ML VIAL. PO ONE; -IOHEXOL 300 MG/ML 100ML VIAL. IV ONE
[2020-02-02 09:49] LABS: BASO % 1 % (0-3); EOS # 0.1 x10^3/uL (0.0-0.7); EOS % 1 % (0-3); HEMATOCRIT 31.7 % (36.0-47.0); HEMOGLOBIN 10.5 g/dL (12.0-15.5); LYMPH # 2.1 x10^3/uL (1.0-4.8); LYMPH % 41 % (24-48); MEAN CORPUSCULAR HEMOGLOBIN 28 pg (25-35); MEAN CORPUSCULAR HGB CONC 33 g/dL (31-37); MEAN CORPUSCULAR VOLUME 84 fL (79-100); MONO # 0.7 x10^3/uL (0.0-1.1); MONO % 13 % (0-9); NEUT # 2.3 x10^3/uL (1.8-7.7); NEUT % 44 % (31-73); PLATELET COUNT 191 x10^3/uL (140-400); RED BLOOD COUNT 3.78 x10^6/uL (3.50-5.40); RED CELL DISTRIBUTION WIDTH 19.3 % (11.5-14.5); WHITE BLOOD COUNT 5.2 x10^3/uL (4.0-11.0)
[2020-02-02 10:07] LABS: ALBUMIN 2.7 g/dL (3.4-5.0); ALBUMIN/GLOBULIN RATIO 0.7 (1.0-1.7); CALCIUM 8.5 mg/dL (8.5-10.1); TOTAL BILIRUBIN 0.1 mg/dL (0.2-1.0); TOTAL PROTEIN 6.8 g/dL (6.4-8.2)
[2020-02-02 10:09] LABS: POTASSIUM 2.9 mmol/L (3.5-5.1)
== END ==
LOC: ONCLAB 09:33
PROVIDERS: ATTEND Internal Medicine Hematology & Oncology
DX: C20 Malignant neoplasm of rectum (principal)
CPT/HCPCS: 36415; 80053; 82378; 85025

== ENCOUNTER → 2020-02-15 | Outpatient (CLI) | payer SELFPAY ==
[2020-02-15 08:38] LABS: BASO % 1 % (0-3); EOS # 0.1 x10^3/uL (0.0-0.7); EOS % 2 % (0-3); HEMATOCRIT 36.3 % (36.0-47.0); HEMOGLOBIN 11.8 g/dL (12.0-15.5); LYMPH # 2.4 x10^3/uL (1.0-4.8); LYMPH % 40 % (24-48); MEAN CORPUSCULAR HEMOGLOBIN 28 pg (25-35); MEAN CORPUSCULAR HGB CONC 33 g/dL (31-37); MEAN CORPUSCULAR VOLUME 86 fL (79-100); MONO # 1.1 x10^3/uL (0.0-1.1); MONO % 17 % (0-9); NEUT # 2.4 x10^3/uL (1.8-7.7); NEUT % 40 % (31-73); PLATELET COUNT 133 x10^3/uL (140-400); RED BLOOD COUNT 4.25 x10^6/uL (3.50-5.40); RED CELL DISTRIBUTION WIDTH 20.4 % (11.5-14.5); WHITE BLOOD COUNT 6.1 x10^3/uL (4.0-11.0)
[2020-02-15 08:49] LABS: CALCIUM 8.5 mg/dL (8.5-10.1); POTASSIUM 3.4 mmol/L (3.5-5.1)
[2020-02-15 08:55] LABS: ALBUMIN 2.8 g/dL (3.4-5.0); ALBUMIN/GLOBULIN RATIO 0.7 (1.0-1.7); TOTAL BILIRUBIN 0.2 mg/dL (0.2-1.0); TOTAL PROTEIN 7.1 g/dL (6.4-8.2)
== END ==
LOC: ONCLAB 08:26
PROVIDERS: ATTEND Internal Medicine Hematology & Oncology
DX: C20 Malignant neoplasm of rectum (principal)
CPT/HCPCS: 36415; 80053; 82378; 85025

== ENCOUNTER → 2020-02-28 | Outpatient (CLI) | payer SELFPAY ==
[2020-02-28 09:01] LABS: BASO % 1 % (0-3); EOS # 0.1 x10^3/uL (0.0-0.7); EOS % 1 % (0-3); HEMATOCRIT 34.9 % (36.0-47.0); HEMOGLOBIN 11.5 g/dL (12.0-15.5); LYMPH # 1.8 x10^3/uL (1.0-4.8); LYMPH % 31 % (24-48); MEAN CORPUSCULAR HEMOGLOBIN 29 pg (25-35); MEAN CORPUSCULAR HGB CONC 33 g/dL (31-37); MEAN CORPUSCULAR VOLUME 87 fL (79-100); MONO # 0.9 x10^3/uL (0.0-1.1); MONO % 16 % (0-9); NEUT % 51 % (31-73); PLATELET COUNT 100 x10^3/uL (140-400); RED BLOOD COUNT 4.03 x10^6/uL (3.50-5.40); RED CELL DISTRIBUTION WIDTH 21.1 % (11.5-14.5); WHITE BLOOD COUNT 5.9 x10^3/uL (4.0-11.0)
[2020-02-28 09:43] LABS: CALCIUM 8.9 mg/dL (8.5-10.1); POTASSIUM 3.4 mmol/L (3.5-5.1)
[2020-02-28 09:48] LABS: ALBUMIN 2.8 g/dL (3.4-5.0); ALBUMIN/GLOBULIN RATIO 0.7 (1.0-1.7); TOTAL BILIRUBIN 0.2 mg/dL (0.2-1.0); TOTAL PROTEIN 7.1 g/dL (6.4-8.2)
== END ==
LOC: ONCLAB 08:39
PROVIDERS: ATTEND Internal Medicine Hematology & Oncology
DX: C20 Malignant neoplasm of rectum (principal)
CPT/HCPCS: 36415; 80053; 85025

== ENCOUNTER → 2020-03-06 | Outpatient (CLI) | payer SELFPAY ==
[2020-03-06 09:05] LABS: BASO % 1 % (0-3); EOS # 0.1 x10^3/uL (0.0-0.7); EOS % 2 % (0-3); HEMATOCRIT 32.8 % (36.0-47.0); HEMOGLOBIN 10.8 g/dL (12.0-15.5); LYMPH # 1.4 x10^3/uL (1.0-4.8); LYMPH % 35 % (24-48); MEAN CORPUSCULAR HEMOGLOBIN 29 pg (25-35); MEAN CORPUSCULAR HGB CONC 33 g/dL (31-37); MEAN CORPUSCULAR VOLUME 88 fL (79-100); MONO # 0.4 x10^3/uL (0.0-1.1); MONO % 11 % (0-9); NEUT # 2.2 x10^3/uL (1.8-7.7); NEUT % 52 % (31-73); PLATELET COUNT 191 x10^3/uL (140-400); RED BLOOD COUNT 3.73 x10^6/uL (3.50-5.40); RED CELL DISTRIBUTION WIDTH 21.1 % (11.5-14.5); WHITE BLOOD COUNT 4.1 x10^3/uL (4.0-11.0)
[2020-03-06 09:12] LABS: CALCIUM 8.6 mg/dL (8.5-10.1); POTASSIUM 3.9 mmol/L (3.5-5.1)
[2020-03-06 09:18] LABS: ALBUMIN 2.7 g/dL (3.4-5.0); ALBUMIN/GLOBULIN RATIO 0.6 (1.0-1.7); TOTAL BILIRUBIN 0.2 mg/dL (0.2-1.0); TOTAL PROTEIN 6.9 g/dL (6.4-8.2)
[2020-03-06 11:07] LABS: ANISOCYTOSIS PRESENT; PLT ESTIMATE ADEQUATE (ADEQUATE)
== END ==
LOC: ONCLAB 08:51
PROVIDERS: ATTEND Physician Assistant
DX: C20 Malignant neoplasm of rectum (principal)
CPT/HCPCS: 36415; 80053; 82378; 85025

== ENCOUNTER → 2020-03-13 | Outpatient (CLI) | payer MEDICAID, OTHER ==
[2020-03-13 09:26] LABS: BASO % 1 % (0-3); EOS # 0.1 x10^3/uL (0.0-0.7); EOS % 2 % (0-3); HEMATOCRIT 33.5 % (36.0-47.0); LYMPH % 23 % (24-48); MEAN CORPUSCULAR HEMOGLOBIN 30 pg (25-35); MEAN CORPUSCULAR HGB CONC 33 g/dL (31-37); MEAN CORPUSCULAR VOLUME 91 fL (79-100); MONO # 0.6 x10^3/uL (0.0-1.1); MONO % 15 % (0-9); NEUT # 2.5 x10^3/uL (1.8-7.7); NEUT % 59 % (31-73); PLATELET COUNT 179 x10^3/uL (140-400); RED BLOOD COUNT 3.67 x10^6/uL (3.50-5.40); RED CELL DISTRIBUTION WIDTH 22.9 % (11.5-14.5); WHITE BLOOD COUNT 4.2 x10^3/uL (4.0-11.0)
[2020-03-13 09:43] LABS: CALCIUM 8.8 mg/dL (8.5-10.1); POTASSIUM 3.6 mmol/L (3.5-5.1)
[2020-03-13 09:49] LABS: ALBUMIN 2.7 g/dL (3.4-5.0); ALBUMIN/GLOBULIN RATIO 0.7 (1.0-1.7); TOTAL BILIRUBIN 0.2 mg/dL (0.2-1.0); TOTAL PROTEIN 6.7 g/dL (6.4-8.2)
== END ==
LOC: ONCLAB 08:57
PROVIDERS: ATTEND Internal Medicine Hematology & Oncology
DX: C20 Malignant neoplasm of rectum (principal)
CPT/HCPCS: 36415; 80053; 85025

== ENCOUNTER → 2020-03-20 | Outpatient (CLI) | payer MEDICAID, OTHER ==
[2020-03-20 09:20] LABS: BASO % 1 % (0-3); EOS # 0.1 x10^3/uL (0.0-0.7); EOS % 1 % (0-3); HEMATOCRIT 31.9 % (36.0-47.0); HEMOGLOBIN 10.7 g/dL (12.0-15.5); LYMPH # 0.8 x10^3/uL (1.0-4.8); LYMPH % 14 % (24-48); MEAN CORPUSCULAR HEMOGLOBIN 31 pg (25-35); MEAN CORPUSCULAR HGB CONC 34 g/dL (31-37); MEAN CORPUSCULAR VOLUME 92 fL (79-100); MONO # 0.8 x10^3/uL (0.0-1.1); MONO % 13 % (0-9); NEUT # 4.2 x10^3/uL (1.8-7.7); NEUT % 72 % (31-73); PLATELET COUNT 196 x10^3/uL (140-400); RED BLOOD COUNT 3.48 x10^6/uL (3.50-5.40); RED CELL DISTRIBUTION WIDTH 25.8 % (11.5-14.5); WHITE BLOOD COUNT 5.9 x10^3/uL (4.0-11.0)
[2020-03-20 09:38] LABS: CALCIUM 9.2 mg/dL (8.5-10.1); POTASSIUM 3.7 mmol/L (3.5-5.1)
[2020-03-20 09:43] LABS: ALBUMIN 2.7 g/dL (3.4-5.0); ALBUMIN/GLOBULIN RATIO 0.6 (1.0-1.7); TOTAL BILIRUBIN 0.3 mg/dL (0.2-1.0); TOTAL PROTEIN 7.3 g/dL (6.4-8.2)
[2020-03-20 11:12] LABS: PLT ESTIMATE ADEQUATE (ADEQUATE)
[2020-03-20 11:13] LABS: ANISOCYTOSIS MARKED
== END ==
LOC: ONCLAB 09:03
PROVIDERS: ATTEND Internal Medicine Hematology & Oncology
DX: C20 Malignant neoplasm of rectum (principal)
CPT/HCPCS: 36415; 80053; 85025

== ENCOUNTER → 2020-03-28 | Outpatient (CLI) | payer SELFPAY ==
[2020-03-28 08:55] LABS: BASO % 1 % (0-3); EOS # 0.1 x10^3/uL (0.0-0.7); EOS % 2 % (0-3); HEMATOCRIT 32.9 % (36.0-47.0); LYMPH # 0.6 x10^3/uL (1.0-4.8); LYMPH % 12 % (24-48); MEAN CORPUSCULAR HEMOGLOBIN 32 pg (25-35); MEAN CORPUSCULAR HGB CONC 34 g/dL (31-37); MEAN CORPUSCULAR VOLUME 95 fL (79-100); MONO # 0.7 x10^3/uL (0.0-1.1); MONO % 13 % (0-9); NEUT # 3.9 x10^3/uL (1.8-7.7); NEUT % 73 % (31-73); PLATELET COUNT 250 x10^3/uL (140-400); RED BLOOD COUNT 3.47 x10^6/uL (3.50-5.40); RED CELL DISTRIBUTION WIDTH 27.5 % (11.5-14.5); WHITE BLOOD COUNT 5.3 x10^3/uL (4.0-11.0)
[2020-03-28 09:21] LABS: ALBUMIN 2.7 g/dL (3.4-5.0); ALBUMIN/GLOBULIN RATIO 0.6 (1.0-1.7); CALCIUM 8.8 mg/dL (8.5-10.1); CREATININE 1.2 mg/dL (0.6-1.0); POTASSIUM 3.8 mmol/L (3.5-5.1); TOTAL BILIRUBIN 0.3 mg/dL (0.2-1.0)
== END ==
LOC: ONCLAB 08:40
PROVIDERS: ATTEND Physician Assistant
DX: C20 Malignant neoplasm of rectum (principal)
CPT/HCPCS: 36415; 80053; 82378; 85025

== ENCOUNTER → 2020-03-31 | Outpatient (CLI) | payer SELFPAY ==
[2020-03-31 12:12] LABS: BILIRUBIN,URINE SMALL (NEG); CLARITY,URINE CLOUDY; COLOR,URINE AMBER; NITRITE,URINE NEGATIVE (NEG); PH,URINE 5.5 (<5.0-8.0); PROTEIN,URINE 100 mg/dL (NEG-TRACE)
[2020-03-31 12:25] LABS: HYALINE CASTS, URINE OCCASIONAL /HPF
[2020-03-31 12:26] LABS: WBC,URINE TNTC /HPF (0-4)
[2020-03-31 12:27] LABS: BACTERIA,URINE FEW /HPF (0-FEW)
== END ==
LOC: ONCLAB 11:51
PROVIDERS: ATTEND Physician Assistant
DX: C20 Malignant neoplasm of rectum (principal)
CPT/HCPCS: 81001; 87086

== ENCOUNTER → 2020-04-04 | Outpatient (CLI) | payer SELFPAY ==
[2020-04-04 11:09] LABS: BASO % 1 % (0-3); EOS # 0.1 x10^3/uL (0.0-0.7); EOS % 1 % (0-3); HEMATOCRIT 31.7 % (36.0-47.0); HEMOGLOBIN 10.6 g/dL (12.0-15.5); LYMPH # 0.6 x10^3/uL (1.0-4.8); LYMPH % 12 % (24-48); MEAN CORPUSCULAR HEMOGLOBIN 32 pg (25-35); MEAN CORPUSCULAR HGB CONC 34 g/dL (31-37); MEAN CORPUSCULAR VOLUME 97 fL (79-100); MONO # 0.6 x10^3/uL (0.0-1.1); MONO % 12 % (0-9); NEUT # 3.5 x10^3/uL (1.8-7.7); NEUT % 74 % (31-73); PLATELET COUNT 271 x10^3/uL (140-400); RED BLOOD COUNT 3.29 x10^6/uL (3.50-5.40); WHITE BLOOD COUNT 4.7 x10^3/uL (4.0-11.0)
[2020-04-04 11:15] LABS: CALCIUM 8.8 mg/dL (8.5-10.1); CREATININE 1.1 mg/dL (0.6-1.0); POTASSIUM 3.5 mmol/L (3.5-5.1)
[2020-04-04 11:26] LABS: ALBUMIN 2.8 g/dL (3.4-5.0); ALBUMIN/GLOBULIN RATIO 0.7 (1.0-1.7); TOTAL BILIRUBIN 0.3 mg/dL (0.2-1.0); TOTAL PROTEIN 6.9 g/dL (6.4-8.2)
[2020-04-04 13:22] LABS: ANISOCYTOSIS MOD
[2020-04-04 13:23] LABS: PLT ESTIMATE ADEQUATE (ADEQUATE)
== END ==
LOC: ONCLAB 10:54
PROVIDERS: ATTEND Internal Medicine Hematology & Oncology
DX: C20 Malignant neoplasm of rectum (principal)
CPT/HCPCS: 36415; 80053; 82378; 85025

== ENCOUNTER → 2020-05-01 | Outpatient (CLI) | payer SELFPAY ==
[2020-05-01 11:05] LABS: BASO % 1 % (0-3); EOS # 0.1 x10^3/uL (0.0-0.7); EOS % 2 % (0-3); HEMATOCRIT 35.1 % (36.0-47.0); HEMOGLOBIN 11.7 g/dL (12.0-15.5); LYMPH # 0.9 x10^3/uL (1.0-4.8); LYMPH % 17 % (24-48); MEAN CORPUSCULAR HEMOGLOBIN 33 pg (25-35); MEAN CORPUSCULAR HGB CONC 33 g/dL (31-37); MEAN CORPUSCULAR VOLUME 99 fL (79-100); MONO # 0.8 x10^3/uL (0.0-1.1); MONO % 14 % (0-9); NEUT # 3.6 x10^3/uL (1.8-7.7); NEUT % 67 % (31-73); PLATELET COUNT 241 x10^3/uL (140-400); RED BLOOD COUNT 3.53 x10^6/uL (3.50-5.40); RED CELL DISTRIBUTION WIDTH 21.6 % (11.5-14.5); WHITE BLOOD COUNT 5.4 x10^3/uL (4.0-11.0)
[2020-05-01 11:18] LABS: CALCIUM 8.9 mg/dL (8.5-10.1); GFR 57.8; POTASSIUM 3.8 mmol/L (3.5-5.1)
[2020-05-01 11:24] LABS: ALBUMIN 2.9 g/dL (3.4-5.0); ALBUMIN/GLOBULIN RATIO 0.7 (1.0-1.7); TOTAL BILIRUBIN 0.3 mg/dL (0.2-1.0)
== END ==
LOC: ONCLAB 10:38
PROVIDERS: ATTEND Physician Assistant
DX: C20 Malignant neoplasm of rectum (principal)
CPT/HCPCS: 36415; 80053; 82378; 85025

== ENCOUNTER → 2020-05-23 | Outpatient (CLI) | payer OTHER ==
[~2020-05-23] MED LIST changes: +GADOTERATE 5 MMOL/10ML VIAL. IVP ONE
--- NOTE | 2020-05-23 13:14 | RAD ---
EXAM: MRI PELVIS WITH AND WITHOUT CONTRAST. HISTORY: Rectal cancer staging. TECHNIQUE: MRI of the pelvis was performed before and after the intravenous administration of gadolin ium contrast. [place] Journal of Roentgenology 2008; [id number]. Evaluation limited without diffu yung-weighted images. COMPARISON: MRI pelvis 11/05/2019. FINDINGS: A rectal mass begins 5 cm proximal to the Anorectal Angle and extends proximally by 3 cm. The staging scheme for low rectal tumors is thus used. Tumor involvement is noncircumferential. Mass is centered at the 3 to 6:00 position of the lower rectum at the anorectal junction. There is extension along th e left lateral margin of the mesorectal fascia and levator ani with involvement of the anal sphincter complex on the left. Overall size is decreased, previously measuring 4.5 x 3.1 cm currently measurin g 2.9 x 2.1 cm. The mass is entirely below the anterior peritoneal reflection. The anterior peritonea l reflection is not involved. Imaging characteristics indicate stage: T4b: Tumor directly invades or is adhered to other organs or structures. Mesorectal node status: N0: No regional lymph node metastases. Extramesorectal liliana involvement is suspected. There is a left pelvic sidewall lymph node measuring 5 mm by short axis (series 4, image 10) this previously measured 8 mm on prior imaging from 11/05/2019 Extramural venous invasion is not identified. IMPRESSION: 1. Noncircumferential rectal mass at the anorectal angle and extends proximally by 3 cm. Imaging will acteristics imply stage T4 bN0. Findings are limited without diffusion-weighted images. Decrease in m asslike area extending through the muscularis propria with involvement of the left levator ani and le ft anal sphincter complex measures 2.9 x 2.1 cm, previously 4.5 x 3.1 cm. Electronically signed by: Geeta Dey MD (05/23/2020 1:12 PM) [id number]
== END ==
LOC: MRI 10:06
PROVIDERS: ATTEND Internal Medicine Hematology & Oncology
DX: C20 Malignant neoplasm of rectum (principal)
CPT/HCPCS: 72197; A9575

== ENCOUNTER → 2020-05-25 | Outpatient (CLI) | payer OTHER ==
[~2020-05-25] MED LIST changes: -GADOTERATE 5 MMOL/10ML VIAL. IVP ONE
[2020-05-25 11:21] LABS: BASO % 1 % (0-3); EOS # 0.6 x10^3/uL (0.0-0.7); EOS % 9 % (0-3); HEMATOCRIT 36.8 % (36.0-47.0); HEMOGLOBIN 12.5 g/dL (12.0-15.5); LYMPH # 1.2 x10^3/uL (1.0-4.8); LYMPH % 18 % (24-48); MEAN CORPUSCULAR HEMOGLOBIN 33 pg (25-35); MEAN CORPUSCULAR HGB CONC 34 g/dL (31-37); MEAN CORPUSCULAR VOLUME 97 fL (79-100); MONO # 0.6 x10^3/uL (0.0-1.1); MONO % 9 % (0-9); NEUT # 4.1 x10^3/uL (1.8-7.7); NEUT % 63 % (31-73); PLATELET COUNT 347 x10^3/uL (140-400); RED CELL DISTRIBUTION WIDTH 18.4 % (11.5-14.5); WHITE BLOOD COUNT 6.5 x10^3/uL (4.0-11.0)
[2020-05-25 11:26] LABS: CALCIUM 8.4 mg/dL (8.5-10.1); GFR 57.8; POTASSIUM 3.8 mmol/L (3.5-5.1)
[2020-05-25 11:33] LABS: ALBUMIN 2.9 g/dL (3.4-5.0); ALBUMIN/GLOBULIN RATIO 0.7 (1.0-1.7); TOTAL BILIRUBIN 0.2 mg/dL (0.2-1.0); TOTAL PROTEIN 7.1 g/dL (6.4-8.2)
== END ==
LOC: ONCLAB 10:37
PROVIDERS: ATTEND Internal Medicine Hematology & Oncology
DX: C20 Malignant neoplasm of rectum (principal)
CPT/HCPCS: 36415; 80053; 85025

== ENCOUNTER → 2020-06-30 | Outpatient (CLI) | payer OTHER ==
[2020-06-30 11:18] LABS: BASO # 0.1 x10^3/uL (0.0-0.2); BASO % 1 % (0-3); EOS # 0.5 x10^3/uL (0.0-0.7); EOS % 7 % (0-3); HEMATOCRIT 30.2 % (36.0-47.0); HEMOGLOBIN 10.1 g/dL (12.0-15.5); LYMPH # 0.8 x10^3/uL (1.0-4.8); LYMPH % 12 % (24-48); MEAN CORPUSCULAR HEMOGLOBIN 32 pg (25-35); MEAN CORPUSCULAR HGB CONC 34 g/dL (31-37); MEAN CORPUSCULAR VOLUME 94 fL (79-100); MONO # 0.6 x10^3/uL (0.0-1.1); MONO % 9 % (0-9); NEUT # 4.7 x10^3/uL (1.8-7.7); NEUT % 71 % (31-73); PLATELET COUNT 365 x10^3/uL (140-400); RED CELL DISTRIBUTION WIDTH 15.8 % (11.5-14.5); WHITE BLOOD COUNT 6.5 x10^3/uL (4.0-11.0)
[2020-06-30 11:55] LABS: CALCIUM 8.6 mg/dL (8.5-10.1); CREATININE 0.9 mg/dL (0.6-1.0); GFR 65.2; POTASSIUM 3.7 mmol/L (3.5-5.1)
[2020-06-30 12:03] LABS: ALBUMIN 2.9 g/dL (3.4-5.0); ALBUMIN/GLOBULIN RATIO 0.7 (1.0-1.7); TOTAL BILIRUBIN 0.3 mg/dL (0.2-1.0); TOTAL PROTEIN 7.3 g/dL (6.4-8.2)
== END ==
LOC: ONCLAB 09:28
PROVIDERS: ATTEND Internal Medicine Hematology & Oncology
DX: C20 Malignant neoplasm of rectum (principal)
CPT/HCPCS: 36415; 80053; 82378; 83735; 85025

== ENCOUNTER → 2020-07-28 | Outpatient (CLI) | payer OTHER ==
[2020-07-28 09:44] LABS: BASO % 1 % (0-3); EOS # 0.2 x10^3/uL (0.0-0.7); EOS % 5 % (0-3); HEMATOCRIT 29.3 % (36.0-47.0); HEMOGLOBIN 9.9 g/dL (12.0-15.5); LYMPH # 0.9 x10^3/uL (1.0-4.8); LYMPH % 20 % (24-48); MEAN CORPUSCULAR HEMOGLOBIN 30 pg (25-35); MEAN CORPUSCULAR HGB CONC 34 g/dL (31-37); MEAN CORPUSCULAR VOLUME 87 fL (79-100); MONO # 0.5 x10^3/uL (0.0-1.1); MONO % 10 % (0-9); NEUT % 65 % (31-73); PLATELET COUNT 357 x10^3/uL (140-400); RED BLOOD COUNT 3.37 x10^6/uL (3.50-5.40); RED CELL DISTRIBUTION WIDTH 17.2 % (11.5-14.5); WHITE BLOOD COUNT 4.7 x10^3/uL (4.0-11.0)
[2020-07-28 09:57] LABS: CREATININE 1.1 mg/dL (0.6-1.0); GFR 51.8; POTASSIUM 3.5 mmol/L (3.5-5.1)
[2020-07-28 10:04] LABS: ALBUMIN/GLOBULIN RATIO 0.7 (1.0-1.7); TOTAL BILIRUBIN 0.2 mg/dL (0.2-1.0); TOTAL PROTEIN 7.3 g/dL (6.4-8.2)
== END ==
LOC: ONCLAB 09:25
PROVIDERS: ATTEND Internal Medicine Hematology & Oncology
DX: C20 Malignant neoplasm of rectum (principal)
CPT/HCPCS: 36415; 80053; 82378; 85025

== ENCOUNTER → 2020-08-08 | Outpatient (CLI) | payer OTHER ==
[2020-08-08 09:40] LABS: BASO % 1 % (0-3); EOS # 0.2 x10^3/uL (0.0-0.7); EOS % 5 % (0-3); HEMOGLOBIN 10.3 g/dL (12.0-15.5); LYMPH # 1.1 x10^3/uL (1.0-4.8); LYMPH % 25 % (24-48); MEAN CORPUSCULAR HEMOGLOBIN 29 pg (25-35); MEAN CORPUSCULAR HGB CONC 33 g/dL (31-37); MEAN CORPUSCULAR VOLUME 87 fL (79-100); MONO # 0.6 x10^3/uL (0.0-1.1); MONO % 12 % (0-9); NEUT # 2.5 x10^3/uL (1.8-7.7); NEUT % 56 % (31-73); PLATELET COUNT 335 x10^3/uL (140-400); RED BLOOD COUNT 3.55 x10^6/uL (3.50-5.40); RED CELL DISTRIBUTION WIDTH 17.7 % (11.5-14.5); WHITE BLOOD COUNT 4.5 x10^3/uL (4.0-11.0)
[2020-08-08 09:58] LABS: CALCIUM 8.8 mg/dL (8.5-10.1); CREATININE 0.9 mg/dL (0.6-1.0); GFR 65.2; POTASSIUM 3.5 mmol/L (3.5-5.1)
[2020-08-08 10:04] LABS: ALBUMIN 3.2 g/dL (3.4-5.0); ALBUMIN/GLOBULIN RATIO 0.8 (1.0-1.7); TOTAL BILIRUBIN 0.3 mg/dL (0.2-1.0); TOTAL PROTEIN 7.4 g/dL (6.4-8.2)
== END ==
LOC: ONCLAB 09:14
PROVIDERS: ATTEND Internal Medicine Hematology & Oncology
DX: C20 Malignant neoplasm of rectum (principal)
CPT/HCPCS: 36415; 80053; 82378; 85025

== ENCOUNTER → 2020-08-22 | Outpatient (CLI) | payer OTHER ==
[2020-08-22 10:40] LABS: BASO % 1 % (0-3); EOS # 0.1 x10^3/uL (0.0-0.7); EOS % 4 % (0-3); HEMATOCRIT 28.5 % (36.0-47.0); HEMOGLOBIN 9.5 g/dL (12.0-15.5); LYMPH # 0.8 x10^3/uL (1.0-4.8); LYMPH % 24 % (24-48); MEAN CORPUSCULAR HEMOGLOBIN 29 pg (25-35); MEAN CORPUSCULAR HGB CONC 33 g/dL (31-37); MEAN CORPUSCULAR VOLUME 87 fL (79-100); MONO # 0.5 x10^3/uL (0.0-1.1); MONO % 15 % (0-9); NEUT % 57 % (31-73); PLATELET COUNT 198 x10^3/uL (140-400); RED BLOOD COUNT 3.28 x10^6/uL (3.50-5.40); RED CELL DISTRIBUTION WIDTH 18.6 % (11.5-14.5); WHITE BLOOD COUNT 3.5 x10^3/uL (4.0-11.0)
[2020-08-22 10:45] LABS: CALCIUM 8.5 mg/dL (8.5-10.1); CREATININE 0.9 mg/dL (0.6-1.0); GFR 65.2; POTASSIUM 3.1 mmol/L (3.5-5.1)
[2020-08-22 10:53] LABS: ALBUMIN 2.7 g/dL (3.4-5.0); ALBUMIN/GLOBULIN RATIO 0.7 (1.0-1.7); TOTAL BILIRUBIN 0.2 mg/dL (0.2-1.0); TOTAL PROTEIN 6.5 g/dL (6.4-8.2)
== END ==
LOC: ONCLAB 10:06
PROVIDERS: ATTEND Internal Medicine Hematology & Oncology
DX: C20 Malignant neoplasm of rectum (principal)
CPT/HCPCS: 36415; 80053; 82378; 85025

== ENCOUNTER → 2020-08-24 | Outpatient (CLI) | payer OTHER ==
[2020-08-24 15:54] LABS: CALCIUM 8.7 mg/dL (8.5-10.1); CREATININE 0.9 mg/dL (0.6-1.0); GFR 65.2; POTASSIUM 3.7 mmol/L (3.5-5.1)
== END ==
LOC: ONCLAB 14:41
PROVIDERS: ATTEND Internal Medicine Hematology & Oncology
DX: C20 Malignant neoplasm of rectum (principal)
CPT/HCPCS: 36415; 80048

== ENCOUNTER → 2020-09-05 | Outpatient (CLI) | payer OTHER ==
[2020-09-05 10:41] LABS: BASO % 1 % (0-3); EOS # 0.1 x10^3/uL (0.0-0.7); EOS % 2 % (0-3); HEMATOCRIT 33.1 % (36.0-47.0); HEMOGLOBIN 10.8 g/dL (12.0-15.5); LYMPH % 20 % (24-48); MEAN CORPUSCULAR HEMOGLOBIN 28 pg (25-35); MEAN CORPUSCULAR HGB CONC 33 g/dL (31-37); MEAN CORPUSCULAR VOLUME 87 fL (79-100); MONO # 0.5 x10^3/uL (0.0-1.1); MONO % 10 % (0-9); NEUT # 3.5 x10^3/uL (1.8-7.7); NEUT % 67 % (31-73); PLATELET COUNT 258 x10^3/uL (140-400); RED CELL DISTRIBUTION WIDTH 18.7 % (11.5-14.5); WHITE BLOOD COUNT 5.2 x10^3/uL (4.0-11.0)
[2020-09-05 10:57] LABS: CALCIUM 8.6 mg/dL (8.5-10.1); GFR 57.8; POTASSIUM 3.5 mmol/L (3.5-5.1)
[2020-09-05 11:07] LABS: ALBUMIN 2.9 g/dL (3.4-5.0); ALBUMIN/GLOBULIN RATIO 0.7 (1.0-1.7); TOTAL BILIRUBIN 0.2 mg/dL (0.2-1.0); TOTAL PROTEIN 7.1 g/dL (6.4-8.2)
== END ==
LOC: ONCLAB 09:42
PROVIDERS: ATTEND Internal Medicine Hematology & Oncology
DX: C20 Malignant neoplasm of rectum (principal)
CPT/HCPCS: 36415; 80053; 82378; 85025

== ENCOUNTER → 2020-09-19 | Outpatient (CLI) | payer OTHER ==
[2020-09-19 11:03] LABS: BASO % 1 % (0-3); EOS # 0.2 x10^3/uL (0.0-0.7); EOS % 4 % (0-3); HEMATOCRIT 33.6 % (36.0-47.0); LYMPH # 1.2 x10^3/uL (1.0-4.8); LYMPH % 27 % (24-48); MEAN CORPUSCULAR HEMOGLOBIN 29 pg (25-35); MEAN CORPUSCULAR HGB CONC 33 g/dL (31-37); MEAN CORPUSCULAR VOLUME 88 fL (79-100); MONO # 0.5 x10^3/uL (0.0-1.1); MONO % 12 % (0-9); NEUT # 2.5 x10^3/uL (1.8-7.7); NEUT % 57 % (31-73); PLATELET COUNT 283 x10^3/uL (140-400); RED BLOOD COUNT 3.81 x10^6/uL (3.50-5.40); RED CELL DISTRIBUTION WIDTH 19.7 % (11.5-14.5); WHITE BLOOD COUNT 4.4 x10^3/uL (4.0-11.0)
[2020-09-19 11:15] LABS: CALCIUM 9.1 mg/dL (8.5-10.1); CREATININE 0.9 mg/dL (0.6-1.0); GFR 65.2; POTASSIUM 3.9 mmol/L (3.5-5.1)
[2020-09-19 11:22] LABS: ALBUMIN 3.2 g/dL (3.4-5.0); ALBUMIN/GLOBULIN RATIO 0.7 (1.0-1.7); TOTAL BILIRUBIN 0.2 mg/dL (0.2-1.0); TOTAL PROTEIN 7.5 g/dL (6.4-8.2)
== END ==
LOC: ONCLAB 09:22
PROVIDERS: ATTEND Internal Medicine Hematology & Oncology
DX: C20 Malignant neoplasm of rectum (principal)
CPT/HCPCS: 36415; 80053; 82378; 85025

== ENCOUNTER → 2020-10-03 | Outpatient (CLI) | payer OTHER ==
[2020-10-03 11:09] LABS: BASO % 1 % (0-3); EOS # 0.1 x10^3/uL (0.0-0.7); EOS % 2 % (0-3); HEMOGLOBIN 11.2 g/dL (12.0-15.5); LYMPH # 0.9 x10^3/uL (1.0-4.8); LYMPH % 21 % (24-48); MEAN CORPUSCULAR HEMOGLOBIN 29 pg (25-35); MEAN CORPUSCULAR HGB CONC 33 g/dL (31-37); MEAN CORPUSCULAR VOLUME 89 fL (79-100); MONO # 0.5 x10^3/uL (0.0-1.1); MONO % 11 % (0-9); NEUT # 2.9 x10^3/uL (1.8-7.7); NEUT % 65 % (31-73); PLATELET COUNT 247 x10^3/uL (140-400); RED BLOOD COUNT 3.82 x10^6/uL (3.50-5.40); RED CELL DISTRIBUTION WIDTH 20.4 % (11.5-14.5); WHITE BLOOD COUNT 4.5 x10^3/uL (4.0-11.0)
[2020-10-03 11:59] LABS: CALCIUM 9.1 mg/dL (8.5-10.1); GFR 57.8; POTASSIUM 3.4 mmol/L (3.5-5.1)
[2020-10-03 12:18] LABS: ALBUMIN 3.2 g/dL (3.4-5.0); ALBUMIN/GLOBULIN RATIO 0.8 (1.0-1.7); TOTAL BILIRUBIN 0.2 mg/dL (0.2-1.0)
[2020-10-03 12:33] LABS: PLT ESTIMATE ADEQUATE (ADEQUATE)
[2020-10-03 12:34] LABS: ANISOCYTOSIS MOD
== END ==
LOC: ONCLAB 09:24
PROVIDERS: ATTEND Internal Medicine Hematology & Oncology
DX: C20 Malignant neoplasm of rectum (principal)
CPT/HCPCS: 36415; 80053; 82378; 85025

== ENCOUNTER → 2020-10-17 | Outpatient (CLI) | payer OTHER ==
[2020-10-17 09:55] LABS: BASO % 1 % (0-3); EOS # 0.2 x10^3/uL (0.0-0.7); EOS % 3 % (0-3); HEMATOCRIT 35.8 % (36.0-47.0); LYMPH # 1.1 x10^3/uL (1.0-4.8); LYMPH % 25 % (24-48); MEAN CORPUSCULAR HEMOGLOBIN 30 pg (25-35); MEAN CORPUSCULAR HGB CONC 33 g/dL (31-37); MEAN CORPUSCULAR VOLUME 89 fL (79-100); MONO # 0.6 x10^3/uL (0.0-1.1); MONO % 14 % (0-9); NEUT # 2.7 x10^3/uL (1.8-7.7); NEUT % 57 % (31-73); PLATELET COUNT 261 x10^3/uL (140-400); RED BLOOD COUNT 4.01 x10^6/uL (3.50-5.40); RED CELL DISTRIBUTION WIDTH 21.1 % (11.5-14.5); WHITE BLOOD COUNT 4.7 x10^3/uL (4.0-11.0)
[2020-10-17 10:08] LABS: CALCIUM 8.4 mg/dL (8.5-10.1); CREATININE 1.2 mg/dL (0.6-1.0); GFR 46.8; POTASSIUM 3.8 mmol/L (3.5-5.1)
[2020-10-17 10:10] LABS: ALBUMIN 3.1 g/dL (3.4-5.0); ALBUMIN/GLOBULIN RATIO 0.9 (1.0-1.7); TOTAL BILIRUBIN 0.2 mg/dL (0.2-1.0); TOTAL PROTEIN 6.7 g/dL (6.4-8.2)
== END ==
LOC: ONCLAB 09:16
PROVIDERS: ATTEND Internal Medicine Hematology & Oncology
DX: C20 Malignant neoplasm of rectum (principal)
CPT/HCPCS: 36415; 80053; 82378; 85025

== ENCOUNTER → 2020-10-31 | Outpatient (CLI) | payer OTHER ==
[2020-10-31 10:23] LABS: BASO % 1 % (0-3); EOS # 0.1 x10^3/uL (0.0-0.7); EOS % 3 % (0-3); HEMATOCRIT 34.5 % (36.0-47.0); HEMOGLOBIN 11.6 g/dL (12.0-15.5); LYMPH # 0.9 x10^3/uL (1.0-4.8); LYMPH % 16 % (24-48); MEAN CORPUSCULAR HEMOGLOBIN 31 pg (25-35); MEAN CORPUSCULAR HGB CONC 34 g/dL (31-37); MEAN CORPUSCULAR VOLUME 91 fL (79-100); MONO # 0.6 x10^3/uL (0.0-1.1); MONO % 11 % (0-9); NEUT # 3.9 x10^3/uL (1.8-7.7); NEUT % 70 % (31-73); PLATELET COUNT 228 x10^3/uL (140-400); RED CELL DISTRIBUTION WIDTH 21.2 % (11.5-14.5); WHITE BLOOD COUNT 5.5 x10^3/uL (4.0-11.0)
[2020-10-31 10:41] LABS: CALCIUM 8.5 mg/dL (8.5-10.1); GFR 57.8; POTASSIUM 3.6 mmol/L (3.5-5.1)
[2020-10-31 10:47] LABS: ALBUMIN 2.9 g/dL (3.4-5.0); ALBUMIN/GLOBULIN RATIO 0.8 (1.0-1.7); TOTAL BILIRUBIN 0.3 mg/dL (0.2-1.0); TOTAL PROTEIN 6.5 g/dL (6.4-8.2)
[2020-10-31 11:28] LABS: PLT ESTIMATE ADEQUATE (ADEQUATE); POLYCHROMASIA PRESENT
[2020-10-31 11:29] LABS: ANISOCYTOSIS PRESENT
== END ==
LOC: ONCLAB 09:25
PROVIDERS: ATTEND Physician Assistant
DX: C20 Malignant neoplasm of rectum (principal)
CPT/HCPCS: 36415; 80053; 82378; 85025

== ENCOUNTER → 2020-11-13 | Outpatient (CLI) | payer OTHER ==
[~2020-11-13] MED LIST changes: +CONTRAST GIVEN. MC PRN; +HEPARIN PF 500 UNIT/5 ML DISP.SYRIN. IVP ONE; +IOHEXOL 240 MG/ML 50ML VIAL. PO ONE; +IOHEXOL 300 MG/ML 100ML VIAL. IV ONE
--- NOTE | 2020-11-13 12:16 | RAD ---
CT of the chest, abdomen, and pelvis 11/13/2020 INDICATION: History of rectal cancer. COMPARISON STUDY: CT of the pelvis with contrast January 30, 2020. MRI of the pelvis May 23, 2020. CT of the chest November 05, 2019 Discussion: Multidetector CT imaging of the chest abdomen pelvis performed following the administrati on of IV and oral contrast. CHEST: There is a right internal jugular port with tip at the cavoatrial junction. Heart is normal in size. No pathologically enlarged mediastinal adenopathy is identified Coronary calcification noted. There is no pneumothorax, pleural effusion, or acute focal infiltrate. . 4 mm subpleural nodular opac ity in the right lower lobe is unchanged. Mild scarring or atelectasis is noted in the lung bases. Kevin ny thorax is grossly intact. Abdomen pelvis: The gallbladder is surgically absent. The liver is unremarkable. Adrenal glands, sple en, and pancreas are unremarkable. The kidneys are unremarkable. There is no bowel obstruction. There is a distal colon resection and left lower quadrant colostomy. No free fluid or free air seen in the abdomen or pelvis. No acute osseous changes are identified. IMPRESSION: 1.No evidence of acute cardiopulmonary or intra-abdominal abnormality 2. 4 mm noncalcified nodule, right lower lobe, unchanged since October 2019 CT DOSING PQRS STATEMENT: One or more of the following individualized dose reduction techniques were utilized for this examinat ion: 1. Automated exposure control 2. Adjustment of the mA and/or kV according to patient size 3. Use of iterative reconstruction technique Electronically signed by: Aaron Salvador MD (11/13/2020 12:14 PM) [id number]
== END ==
LOC: CT 10:10
PROVIDERS: ATTEND Internal Medicine Hematology & Oncology
DX: C20 Malignant neoplasm of rectum (principal); R91.1 Solitary pulmonary nodule; Z90.49 Acquired absence of other specified parts of digestive tract
CPT/HCPCS: 71260; 74177; J1642; Q9966; Q9967

== ENCOUNTER 2021-02-08 08:32 | Outpatient (CLI) | payer OTHER ==
[~2021-02-08] VITALS: Ht 167.6 cm; Wt 95.0 kg
[~2021-02-08 08:32] MED LIST changes: -CONTRAST GIVEN. MC PRN; -HEPARIN PF 500 UNIT/5 ML DISP.SYRIN. IVP ONE; -IOHEXOL 240 MG/ML 50ML VIAL. PO ONE; -IOHEXOL 300 MG/ML 100ML VIAL. IV ONE
[2021-02-08 08:59] VITALS: BP 165/95
[2021-02-08] MEDS ORDERED: LIDOCAINE 1%/EPI 1:100,000 20 ML VIAL. ONE (09:06)
[2021-02-08 09:44] LABS: BASO % 1 % (0-3); EOS # 0.1 x10^3/uL (0.0-0.7); EOS % 2 % (0-3); HEMOGLOBIN 12.8 g/dL (12.0-15.5); LYMPH # 1.4 x10^3/uL (1.0-4.8); LYMPH % 31 % (24-48); MEAN CORPUSCULAR HEMOGLOBIN 31 pg (25-35); MEAN CORPUSCULAR HGB CONC 33 g/dL (31-37); MEAN CORPUSCULAR VOLUME 95 fL (79-100); MONO # 0.4 x10^3/uL (0.0-1.1); MONO % 10 % (0-9); NEUT # 2.5 x10^3/uL (1.8-7.7); NEUT % 57 % (31-73); PLATELET COUNT 241 x10^3/uL (140-400); RED BLOOD COUNT 4.12 x10^6/uL (3.50-5.40); RED CELL DISTRIBUTION WIDTH 14.9 % (11.5-14.5); WHITE BLOOD COUNT 4.5 x10^3/uL (4.0-11.0)
[2021-02-08] MEDS: LIDOCAINE 1%/EPI 1:100,000 20 ML VIAL. INJ ONE (10:45)
[2021-02-08 11:25] VITALS: BP 155/90
--- NOTE | 2021-02-08 12:52 | RAD ---
Removal of right internal jugular port 02/08/2021 Consent: The procedure was explained in its entirety to the patient or the patients designated repres entative by a member of the treatment team, including a discussion of the risks, benefits and commonl y accepted alternatives to the procedure, as well as the expected consequences of no therapy whatsoev er. Discussion of the risks included, but was not limited to, those that are most frequent and thos e that are rare but possibly severe or life-threatening, as well as the possibility of unforeseen com plications. The right chest was prepped and draped using maximum sterile barrier technique. 1% lidocaine was admi nistered for local anesthesia overlying the port reservoir. Small incision was made and the port was removed intact. Intact was confirmed under fluoroscopy with pre and post removal imaging. The wound w as closed in layers using 4-0 Vicryl suture. No immediate complications were identified. Total fluoroscopy time 0.1 minutes Dose area product 1 Means centimeter squared Anesthesia: Local only Impression: Removal of right internal jugular tunneled central line with port Electronically signed by: Aaron Salvador MD (02/08/2021 12:50 PM) [id number]
== END 2021-02-08 11:45 | disposition home or self-care (01) ==
LOC: INTRAD 08:32
PROVIDERS: ATTEND Internal Medicine Hematology & Oncology
DX: Z45.2 Encounter for adjustment and management of vascular access device (principal); I10 Essential (primary) hypertension; F17.210 Nicotine dependence, cigarettes, uncomplicated; Z90.49 Acquired absence of other specified parts of digestive tract; Z90.710 Acquired absence of both cervix and uterus; Z98.890 Other specified postprocedural states; Z79.899 Other long term (current) drug therapy; Z20.822 Contact with and (suspected) exposure to COVID-19
CPT/HCPCS: 36415; 36590; 77001; 85025; 85610; 87426; J3490

== ENCOUNTER → 2021-02-22 | Outpatient (CLI) | payer OTHER ==
[2021-02-08 11:25] VITALS: BP 155/90
[2021-02-22 10:22] LABS: BASO % 1 % (0-3); EOS # 0.1 x10^3/uL (0.0-0.7); EOS % 3 % (0-3); HEMATOCRIT 39.4 % (36.0-47.0); HEMOGLOBIN 13.3 g/dL (12.0-15.5); LYMPH # 1.1 x10^3/uL (1.0-4.8); LYMPH % 23 % (24-48); MEAN CORPUSCULAR HEMOGLOBIN 31 pg (25-35); MEAN CORPUSCULAR HGB CONC 34 g/dL (31-37); MEAN CORPUSCULAR VOLUME 93 fL (79-100); MONO # 0.5 x10^3/uL (0.0-1.1); MONO % 11 % (0-9); NEUT % 63 % (31-73); PLATELET COUNT 254 x10^3/uL (140-400); RED BLOOD COUNT 4.24 x10^6/uL (3.50-5.40); RED CELL DISTRIBUTION WIDTH 14.7 % (11.5-14.5); WHITE BLOOD COUNT 4.8 x10^3/uL (4.0-11.0)
[2021-02-22 10:35] LABS: CALCIUM 8.4 mg/dL (8.5-10.1); GFR 57.8; POTASSIUM 3.9 mmol/L (3.5-5.1)
[2021-02-22 10:41] LABS: ALBUMIN 3.3 g/dL (3.4-5.0); ALBUMIN/GLOBULIN RATIO 0.8 (1.0-1.7); TOTAL BILIRUBIN 0.3 mg/dL (0.2-1.0); TOTAL PROTEIN 7.7 g/dL (6.4-8.2)
== END ==
LOC: ONCLAB 10:03
PROVIDERS: ATTEND Internal Medicine Hematology & Oncology
DX: C20 Malignant neoplasm of rectum (principal)
CPT/HCPCS: 36415; 80053; 82378; 85025

== ENCOUNTER → 2021-03-01 | Outpatient (CLI) | payer OTHER ==
[2021-02-08 11:25] VITALS: BP 155/90
[~2021-03-01] MED LIST changes: +CONTRAST GIVEN. MC PRN; +IOHEXOL 240 MG/ML 50ML VIAL. PO ONE; +IOHEXOL 300 MG/ML 100ML VIAL. IV ONE
--- NOTE | 2021-03-01 11:02 | RAD ---
EXAM: CT Chest, Abdomen and Pelvis with IV contrast CLINICAL HISTORY: Reason: rectal cancer / Spl. Instructions: omni 300 60ml omni 240 50ml / History: COMPARISON: CT chest 7 pelvis from 11/13/2020 dating back to 11/03/2019 TECHNIQUE: Helical CT of the chest, abdomen and pelvis was performed following the administration of intravenous contrast. Axial, coronal and sagittal reformatted images were generated. ---PQRS compliance statement - One or more of the following individualized dose reduction techniques were utilized for this study: 1. Automated exposure control 2. Adjustment of the mA and/or kV according to patient size 3. Use of iterative reconstruction technique--- FINDINGS: CHEST: LUNGS/PLEURA: The pulmonary parenchyma appears within normal limits. The 4 mm subpleural nodular opac ity in the right lower lobe is unchanged. Similar scarring and/or atelectasis noted in the lung bases , greater on the right. No new suspicious pulmonary nodules. No pleural effusion or focal pleural les ion. MEDIASTINUM: No pathologic mediastinal or hilar adenopathy. The thoracic aorta and pulmonary arteries are normal in caliber. The heart is normal in size. No pericardial effusion. Severe calcified blount ry atherosclerosis. Thyroid gland is not enlarged. There are nodular slightly hypoattenuating nodules in bilateral lobes measuring up to 1.6 cm on the right. AXILLA/SOFT TISSUE: No supraclavicular or axillary adenopathy. Regional soft tissues are within [place] l limits. Abdomen and Pelvis: Liver and biliary system: No focal liver lesion. Gallbladder is absent. No biliary ductal dilatation . Spleen: Unremarkable. Tiny adjacent splenule is redemonstrated. Pancreas: Unremarkable Adrenal glands: Unremarkable Kidneys: Symmetric nephrograms. Similar cortical scarring in the left inferior pole. No nephrolithias is or hydronephrosis. No abnormal perinephric inflammation. Lymph nodes/retroperitoneum: No pathologically enlarged abdominal or pelvic adenopathy. No retroperit murcia masses. Vessels: Similar abdominal biiliac atherosclerotic disease with no aneurysmal dilation. Bowel/Peritoneal cavity: Redemonstrated distal colon resection and left lower quadrant colostomy. The re is a moderate to large colonic stool burden. No evidence of obstruction or focal wall thickening. No free intra-abdominal air or free fluid. Appendix is not definitely visualized. Abdominal wall: Similar appearance of left anterior abdominal wall colostomy. No evidence of acute ab normality. Bladder: Unremarkable Reproductive: Uterus is absent. Bones: No acute or suspicious osseous amount is. IMPRESSION: 1. No evidence of acute cardiopulmonary or intra-abdominal abnormality. 2. Nodular appearance of the thyroid gland. Largest nodule appears to measure up to 1.6 cm. Recommend correlation with endocrine function and follow-up with thyroid ultrasound. 3.Stable appearance of 4 mm noncalcified nodule in the right lower lobe, unchanged October 2019 4. Moderate to large retention of colonic fecal material. Correlation with symptoms of constipation. Electronically signed by: Rudi Ayoub DO (03/01/2021 11:00 AM) [facility]
== END ==
LOC: CT 08:41
PROVIDERS: ATTEND Internal Medicine Hematology & Oncology
DX: C20 Malignant neoplasm of rectum (principal); R91.1 Solitary pulmonary nodule; E04.1 Nontoxic single thyroid nodule; K59.00 Constipation, unspecified; I25.10 Atherosclerotic heart disease of native coronary artery without angina pectoris; Z90.49 Acquired absence of other specified parts of digestive tract
CPT/HCPCS: 71260; 74177; Q9966; Q9967

== ENCOUNTER → 2021-06-26 | Outpatient (CLI) | payer OTHER ==
[~2021-06-26] MED LIST changes: -CONTRAST GIVEN. MC PRN; -IOHEXOL 240 MG/ML 50ML VIAL. PO ONE; -IOHEXOL 300 MG/ML 100ML VIAL. IV ONE
[2021-06-26 12:28] LABS: BASO % 1 % (0-3); EOS # 0.1 x10^3/uL (0.0-0.7); EOS % 2 % (0-3); HEMOGLOBIN 14.3 g/dL (12.0-15.5); LYMPH # 1.3 x10^3/uL (1.0-4.8); LYMPH % 24 % (24-48); MEAN CORPUSCULAR HEMOGLOBIN 33 pg (25-35); MEAN CORPUSCULAR HGB CONC 35 g/dL (31-37); MEAN CORPUSCULAR VOLUME 94 fL (79-100); MONO # 0.6 x10^3/uL (0.0-1.1); MONO % 10 % (0-9); NEUT # 3.6 x10^3/uL (1.8-7.7); NEUT % 64 % (31-73); PLATELET COUNT 277 x10^3/uL (140-400); RED BLOOD COUNT 4.34 x10^6/uL (3.50-5.40); RED CELL DISTRIBUTION WIDTH 13.3 % (11.5-14.5); WHITE BLOOD COUNT 5.6 x10^3/uL (4.0-11.0)
[2021-06-26 12:37] LABS: CALCIUM 8.7 mg/dL (8.5-10.1); CREATININE 1.1 mg/dL (0.6-1.0); GFR 51.6; POTASSIUM 3.5 mmol/L (3.5-5.1)
[2021-06-26 12:43] LABS: ALBUMIN 3.4 g/dL (3.4-5.0); ALBUMIN/GLOBULIN RATIO 0.8 (1.0-1.7); TOTAL BILIRUBIN 0.3 mg/dL (0.2-1.0); TOTAL PROTEIN 7.6 g/dL (6.4-8.2)
== END ==
LOC: ONCLAB 11:54
PROVIDERS: ATTEND Internal Medicine Hematology & Oncology
DX: C20 Malignant neoplasm of rectum (principal)
CPT/HCPCS: 36415; 80053; 82378; 85025